=== PATIENT | female | born 1965 | race Caucasian/White ===

== ENCOUNTER 2017-05-01 20:37 | Emergency (ER) | payer OTHER ==
[2017-05-01 21:11] VITALS: BP 143/68; PULSE 75; RESP 20; TEMP 98.5
--- NOTE | 2017-05-01 21:36 | ED ---
Fall HPI - General Chief Complaint: Fall Stated Complaint: Fall, Left Ankle Injury Time Seen by Provider: 05/01/17 21:24 Source: patient Mode of arrival: wheelchair Limitations: no limitations - History of Present Illness Initial Comments: 51-year-old female presents emergency Department chief complaint of left ankle foot pain. Patient states that she was stepping out of her parents tell slipped on a rug and some ice. Patient states that her foot went backwards. She states that she is not able to bear weight secondary to pain. She states it swollen. Denies head injury no loss conscious. Patient states she has a contusion to her right forearm but minimal discomfort. Patient offers no other complaints other injuries. Symptoms are better at rest. - Related Data Home Medications Medication Instructions Recorded Confirmed No Known Home Medications [No 07/07/13 05/01/17 Known Home Medications] Allergies Allergy/AdvReac Type Severity Reaction Status Date / Time codeine Allergy Rash/Hives Verified 07/07/13 20:20 sulfamethoxazole Allergy Rash/Hives Verified 07/07/13 20:20 [From Bactrim] trimethoprim [From Bactrim] Allergy Rash/Hives Verified 07/07/13 20:20 Review of Systems ROS Statement: Those systems with pertinent positive or pertinent negative responses have been documented in the HPI. ROS Other: All systems not noted in ROS Statement are negative. Past Medical History Past Medical History: Pneumonia Additional Past Medical History / Comment(s): ibs, constipation, endometerosis History of Any Multi-Drug Resistant Organisms: None Reported Additional Past Surgical History / Comment(s): uterine ablation Past Psychological History: Depression Smoking Status: Never smoker Past Alcohol Use History: None Reported Past Drug Use History: None Reported General Exam Limitations: no limitations General appearance: alert, in no apparent distress Head exam: Present: atraumatic, normocephalic, normal inspection Neck exam: Present: normal inspection, full ROM. Absent: tenderness, meningismus, lymphadenopathy Respiratory exam: Present: normal lung sounds bilaterally. Absent: respiratory distress, wheezes, rales, rhonchi, stridor Cardiovascular Exam: Present: regular rate, normal rhythm, normal heart sounds. Absent: systolic murmur, diastolic murmur, rubs, gallop, clicks Extremities exam: Present: other (Left ankle there is mild swelling, tenderness the anterior surface and lateral malleolus, pedal pulses equal bilaterally there is tenderness over the second third fourth metatarsal) Skin exam: Present: warm, dry, intact, normal color. Absent: rash Course Vital Signs 05/01/17 21:08 Temperature 98.5 F Pulse Rate 75 Respiratory 20 Rate Blood Pressure 143/68 O2 Sat by Pulse 98 Oximetry Medical Decision Making - Medical Decision Making This a 51-year-old female presented for left foot and ankle injury. There is no acute fracture per radiology reading. Patient has a left foot and ankle sprain. Patiently Lazarus wrap and follow-up with her primary care physician or orthopedics if needed. Return parameters were discussed. Disposition Clinical Impression: Fall, Left ankle sprain, Sprain of left foot Disposition: HOME SELF-CARE Condition: Stable Instructions: Ankle Sprain (ED) Additional Instructions: Please return to the Emergency Department if symptoms worsen or any other concerns. Referrals: Luis Salazar MD [Primary Care Provider] - 1-2 days Time of Disposition: 21:46
--- NOTE | 2017-05-01 21:42 | XR ---
EXAMINATION TYPE: XR ankle complete LT DATE OF EXAM: 05/01/2017 COMPARISON: NONE HISTORY: Pain TECHNIQUE: 3 views FINDINGS: I see no fracture nor dislocation. Ankle mortise is anatomic. There is a plantar calcaneal spur. IMPRESSION: Calcaneal mild spurring. No fracture seen.
--- NOTE | 2017-05-01 21:43 | XR ---
EXAMINATION TYPE: XR foot complete LT DATE OF EXAM: 05/01/2017 COMPARISON: NONE HISTORY: Pain TECHNIQUE: 3 views FINDINGS: I see no fracture nor dislocation. Metatarsals appear intact. Joint spaces are normal. IMPRESSION: Negative left foot exam. Small plantar calcaneal spur is present.
== END 2017-05-01 21:58 | disposition home or self-care (01) ==
LOC: EC 20:37
DX: S93.402A Sprain of unspecified ligament of left ankle, initial encounter (principal); S93.602A Unspecified sprain of left foot, initial encounter; Z88.2 Allergy status to sulfonamides; Z88.5 Allergy status to narcotic agent; W01.0XXA Fall on same level from slipping, tripping and stumbling without subsequent striking against object, initial encounter; Y92.89 Other specified places as the place of occurrence of the external cause
CPT/HCPCS: 99283

== ENCOUNTER 2017-10-06 18:44 | Emergency (ER) | payer OTHER ==
[2017-10-06] MEDS ORDERED: FAMOTIDINE 20 MG/2 ML VIAL IV STA (19:05)
[2017-10-06] MEDS ORDERED: diphenhydrAMINE 50 MG/ML 1 ML VIAL IVP STA (19:05)
[2017-10-06] MEDS ORDERED: methylPREDNISolone SOD SUCCI 125 MG/2 ML VIAL IV STA (19:05)
--- NOTE | 2017-10-06 19:14 | ED ---
General Adult HPI - General Source: patient, RN notes reviewed Mode of arrival: ambulatory Limitations: no limitations <Taran Bryant - Last Filed: 10/06/17 19:31> <Low Felix - Last Filed: 10/06/17 21:04> - General Chief complaint: Allergic Reaction Stated complaint: allergic reaction, diff breathing Time Seen by Provider: 10/06/17 18:54 - History of Present Illness Initial comments: Patient 51-year-old female presenting to the emergency room today with a chief complaint of hives. Patient does admit that she's had some small spots over the last month. She states that she was having episodes diarrhea. She states that a week ago she saw her family physician and was started on ciprofloxacin and also a Medrol Dosepak. Patient states that she's been on this for the past week. She states that today when she was at work the areas of redness and swelling got worse. She does admit that she felt some chest tightness. She states this morning she felt some discomfort in the back of her shoulders. She states the areas on her skin are very itchy and inflamed. Has not taken anything for these. Denies any contacts. Denies any other complaints. Patient denies any recent fever, chills, shortness of breath, back pain, nausea or vomiting, headaches or visual changes, or any other complaints. (Taran Bryant) - Related Data Home Medications Medication Instructions Recorded Confirmed Ciprofloxacin HCl [Cipro] 500 mg PO Q12HR 10/06/17 10/06/17 Ibuprofen [Motrin Ib] 400 mg PO Q6H PRN 10/06/17 10/06/17 methylPREDNISolone Dose Pack See Taper PO DIRECTED 10/06/17 10/06/17 [Medrol Dose Pack] Previous Rx's Medication Instructions Recorded diphenhydrAMINE [Benadryl] 25 mg PO TID PRN #21 capsule 10/06/17 methylPREDNISolone Dose Pack 4 mg PO DIRECTED #21 package 10/06/17 [Medrol Dose Pack] Allergies Allergy/AdvReac Type Severity Reaction Status Date / Time codeine Allergy Rash/Hives Verified 10/06/17 19:23 sulfamethoxazole Allergy Rash/Hives Verified 10/06/17 19:23 [From Bactrim] trimethoprim [From Bactrim] Allergy Rash/Hives Verified 10/06/17 19:23 Review of Systems ROS Other: All systems not noted in ROS Statement are negative. <Taran Bryant - Last Filed: 10/06/17 19:31> ROS Other: All systems not noted in ROS Statement are negative. <Low Felix Ebonie - Last Filed: 10/06/17 21:04> ROS Statement: Those systems with pertinent positive or pertinent negative responses have been documented in the HPI. Past Medical History Past Medical History: Pneumonia Additional Past Medical History / Comment(s): ibs, constipation, endometeriosis , autoimmune marker + in blood work recently History of Any Multi-Drug Resistant Organisms: None Reported Additional Past Surgical History / Comment(s): uterine ablation, bilateral wrist ORIF Past Psychological History: Depression Smoking Status: Never smoker Past Alcohol Use History: Occasional Past Drug Use History: None Reported <Taran Bryant - Last Filed: 10/06/17 19:31> General Exam Limitations: no limitations <Taran Bryant - Last Filed: 10/06/17 19:31> <LuzhaseebLow Ebonie - Last Filed: 10/06/17 21:04> - General Exam Comments Initial Comments: General: The patient is awake and alert, in no distress, and does not appear acutely ill. Eye: Pupils are equal, round and reactive to light, extra-ocular movements are intact. No nystagmus. There is normal conjunctiva bilaterally. No signs of icterus. Ears, nose, mouth and throat: There are moist mucous membranes and no oral lesions. Neck: The neck is supple, there is no tenderness or JVD. Cardiovascular: There is a regular rate and rhythm. No murmur, rub or gallop is appreciated. Respiratory: Lungs are clear to auscultation, respirations are non-labored, breath sounds are equal. No wheezes, stridor, rales, or rhonchi. Gastrointestinal: Soft, non-distended, non-tender abdomen without masses or organomegaly noted. There is no rebound or guarding present. No CVA tenderness. Musculoskeletal: Normal ROM, no tenderness. Sensation intact. Neurological: A&O x 3. CN II-XII intact, There are no obvious motor or sensory deficits. Coordination appears grossly intact. Speech is normal. Skin: Red raised areas to the extremities bilaterally. Psychiatric: Cooperative, appropriate mood & affect, normal judgment. (Taran Bryant) Vital Signs 10/06/17 10/06/17 10/06/17 18:47 19:47 20:34 Temperature 97.6 F Pulse Rate 97 91 78 Respiratory 22 16 18 Rate Blood Pressure 118/80 146/93 144/92 O2 Sat by Pulse 96 99 99 Oximetry EKG Findings - EKG Comments: EKG Findings:: EKG performed at 1926: Shows normal sinus rhythm with an incomplete right bundle branch block. Ventricular rate 69 bpm. MT interval 184. QRS 96. QT/QTC 380/407. <Taran Bryant - Last Filed: 10/06/17 19:31> Medical Decision Making <Taran Bryant - Last Filed: 10/06/17 19:31> - Lab Data Result diagrams: 10/06/17 19:40 10/06/17 19:40 <Low Felix - Last Filed: 10/06/17 21:04> - Medical Decision Making 51-year-old female presenting for evaluation of possible ALLERGIC reaction and rash. Patient has been on Cipro, she does believe her symptoms are related to Cipro today is day 6 of treatment. She complained of some rash, itchiness, and some mild chest tightness. For this reason she did receive a cardiac workup. Symptoms have been present for approximately 12 hours. EKG is normal sinus rhythm with an incomplete right bundle branch block, no ST segment elevation or depression, laboratory studies are unremarkable including normal CBC, normal CMP and a negative troponin. Case is discussed with her primary care physician Dr. Salazar. She will be started on Medrol Dosepak as well as short course of Benadryl. She will follow-up with her primary care physician. (Low Felix) - Lab Data Lab Results 10/06/17 10/06/17 10/06/17 Range/Units 19:40 19:40 19:40 WBC 8.7 (3.8-10.6) k/uL RBC 4.51 (3.80-5.40) m/uL Hgb 13.9 (11.4-16.0) gm/dL Hct 40.6 (34.0-46.0) % MCV 90.1 (80.0-100.0) fL MCH 30.8 (25.0-35.0) pg MCHC 34.2 (31.0-37.0) g/dL RDW 12.3 (11.5-15.5) % Plt Count 332 (150-450) k/uL Neutrophils % 61 % Lymphocytes % 33 % Monocytes % 5 % Eosinophils % 0 % Basophils % 0 % Neutrophils # 5.3 (1.3-7.7) k/uL Lymphocytes # 2.8 (1.0-4.8) k/uL Monocytes # 0.4 (0-1.0) k/uL Eosinophils # 0.0 (0-0.7) k/uL Basophils # 0.0 (0-0.2) k/uL PT (9.0-12.0) sec INR (<1.2) APTT (22.0-30.0) sec Sodium 135 L (137-145) mmol/L Potassium 3.8 (3.5-5.1) mmol/L Chloride 102 (98-107) mmol/L Carbon Dioxide 27 (22-30) mmol/L Anion Gap 6 mmol/L BUN 15 (7-17) mg/dL Creatinine 0.70 (0.52-1.04) mg/dL Est GFR (CKD-EPI)AfAm >90 (>60 ml/min/1.73 sqM) Est GFR (CKD-EPI)NonAf >90 (>60 ml/min/1.73 sqM) Glucose 100 H (74-99) mg/dL Calcium 9.3 (8.4-10.2) mg/dL Total Bilirubin 0.4 (0.2-1.3) mg/dL AST 17 (14-36) U/L ALT 26 (9-52) U/L Alkaline Phosphatase 52 (38-126) U/L Total Creatine Kinase 29 L (30-135) U/L CK-MB (CK-2) 0.5 (0.0-2.4) ng/mL CK-MB (CK-2) Rel Index 1.7 Troponin I <0.012 (0.000-0.034) ng/mL Total Protein 6.5 (6.3-8.2) g/dL Albumin 4.0 (3.5-5.0) g/dL Urine Color Urine Appearance (Clear) Urine pH (5.0-8.0) Ur Specific [place] (1.001-1.035) Urine Protein (Negative) Urine Glucose (UA) (Negative) Urine Ketones (Negative) Urine Blood (Negative) Urine Nitrite (Negative) Urine Bilirubin (Negative) Urine Urobilinogen (<2.0) mg/dL Ur Leukocyte Esterase (Negative) Urine RBC (0-5) /hpf Urine WBC (0-5) /hpf Ur Squamous Epith Cells (0-4) /hpf Urine Bacteria (None) /hpf Hyaline Casts (0-2) /lpf Urine Mucus (None) /hpf 10/06/17 10/06/17 Range/Units 19:40 20:30 WBC (3.8-10.6) k/uL RBC (3.80-5.40) m/uL Hgb (11.4-16.0) gm/dL Hct (34.0-46.0) % MCV (80.0-100.0) fL MCH (25.0-35.0) pg MCHC (31.0-37.0) g/dL RDW (11.5-15.5) % Plt Count (150-450) k/uL Neutrophils % % Lymphocytes % % Monocytes % % Eosinophils % % Basophils % % Neutrophils # (1.3-7.7) k/uL Lymphocytes # (1.0-4.8) k/uL Monocytes # (0-1.0) k/uL Eosinophils # (0-0.7) k/uL Basophils # (0-0.2) k/uL PT 10.4 (9.0-12.0) sec INR 1.1 (<1.2) APTT 22.2 (22.0-30.0) sec Sodium (137-145) mmol/L Potassium (3.5-5.1) mmol/L Chloride (98-107) mmol/L Carbon Dioxide (22-30) mmol/L Anion Gap mmol/L BUN (7-17) mg/dL Creatinine (0.52-1.04) mg/dL Est GFR (CKD-EPI)AfAm (>60 ml/min/1.73 sqM) Est GFR (CKD-EPI)NonAf (>60 ml/min/1.73 sqM) Glucose (74-99) mg/dL Calcium (8.4-10.2) mg/dL Total Bilirubin (0.2-1.3) mg/dL AST (14-36) U/L ALT (9-52) U/L Alkaline Phosphatase (38-126) U/L Total Creatine Kinase (30-135) U/L CK-MB (CK-2) (0.0-2.4) ng/mL CK-MB (CK-2) Rel Index Troponin I (0.000-0.034) ng/mL Total Protein (6.3-8.2) g/dL Albumin (3.5-5.0) g/dL Urine Color Yellow Urine Appearance Cloudy H (Clear) Urine pH 6.0 (5.0-8.0) Ur Specific [place] 1.025 (1.001-1.035) Urine Protein 1+ H (Negative) Urine Glucose (UA) Negative (Negative) Urine Ketones Negative (Negative) Urine Blood Negative (Negative) Urine Nitrite Negative (Negative) Urine Bilirubin Negative (Negative) Urine Urobilinogen 3.0 (<2.0) mg/dL Ur Leukocyte Esterase Negative (Negative) Urine RBC 3 (0-5) /hpf Urine WBC 6 H (0-5) /hpf Ur Squamous Epith Cells 2 (0-4) /hpf Urine Bacteria Rare H (None) /hpf Hyaline Casts 25 H (0-2) /lpf Urine Mucus Many H (None) /hpf Disposition <Taran Bryant - Last Filed: 10/06/17 19:31> Is patient prescribed a controlled substance at d/c from ED?: No Time of Disposition: 21:03 <Low Felix - Last Filed: 10/06/17 21:04> Clinical Impression: Adverse reaction to drug Disposition: HOME SELF-CARE Condition: Good Instructions: General Allergic Reaction (ED) Prescriptions: diphenhydrAMINE [Benadryl] 25 mg PO TID PRN #21 capsule PRN Reason: Allergic Reaction methylPREDNISolone Dose Pack [Medrol Dose Pack] 4 mg PO DIRECTED #21 package Referrals: Luis Salazar MD [Primary Care Provider] - 1-2 days
[2017-10-06 20:00] LABS: Basophils % (A) 0 %; Eosinophils % (A) 0 %; HCT 40.6 % (34.0-46.0); HGB 13.9 gm/dL (11.4-16.0); Lymphocytes # (A) 2.8 k/uL (1.0-4.8); Lymphocytes % (A) 33 %; MCH 30.8 pg (25.0-35.0); MCHC 34.2 g/dL (31.0-37.0); MCV 90.1 fL (80.0-100.0); Mean Platelet Volume 7.1; Monocytes # (A) 0.4 k/uL (0-1.0); Monocytes % (A) 5 %; Neutrophils # (A) 5.3 k/uL (1.3-7.7); Neutrophils % (A) 61 %; Platelet Count 332 k/uL (150-450); RBC 4.51 m/uL (3.80-5.40); RDW 12.3 % (11.5-15.5); WBC 8.7 k/uL (3.8-10.6)
[2017-10-06 20:11] LABS: ALT 26 U/L (9-52); AST 17 U/L (14-36); Alkaline Phosphatase 52 U/L (38-126); Anion Gap 6 mmol/L; Blood Urea Nitrogen 15 mg/dL (7-17); Calcium 9.3 mg/dL (8.4-10.2); Carbon Dioxide 27 mmol/L (22-30); Chloride 102 mmol/L (98-107); Glucose 100 mg/dL (74-99); Potassium 3.8 mmol/L (3.5-5.1); Sodium 135 mmol/L (137-145); Total Bilirubin 0.4 mg/dL (0.2-1.3); Total Protein 6.5 g/dL (6.3-8.2)
--- NOTE | 2017-10-06 20:15 | XR ---
EXAMINATION TYPE: XR chest 2V DATE OF EXAM: 10/06/2017 COMPARISON: NONE HISTORY: Chest tightness TECHNIQUE: Frontal and lateral views of the chest are obtained. FINDINGS: Heart and mediastinum are normal. Lungs are clear. Diaphragm is normal. Bony thorax is int act. IMPRESSION: Normal chest. No change.
[2017-10-06 20:20] LABS: Creatine Kinase 29 U/L (30-135)
[2017-10-06 20:21] LABS: INR 1.1 (<1.2); Partial Thromboplastin Time 22.2 sec (22.0-30.0); Prothrombin Time 10.4 sec (9.0-12.0)
[2017-10-06 20:32] LABS: Creatine Kinase MB 0.5 ng/mL (0.0-2.4); Troponin I <0.012 ng/mL (0.000-0.034)
[2017-10-06 20:50] LABS: Appearance,Urine Cloudy (Clear); Bacteria,Urine Rare /hpf; Bilirubin,Urine Negative (Negative); Blood,Urine Negative (Negative); Color,Urine Yellow; Glucose,Urine (UA) Negative (Negative); Hyaline Casts,Urine 25 /lpf (0-2); Ketones,Urine Negative (Negative); Leukocyte Esterase,Urine Negative (Negative); Mucus,Urine Many /hpf; Nitrite,Urine Negative (Negative); Protein,Urine 1+ (Negative); RBC,Urine 3 /hpf (0-5); Specific Gravity,Urine 1.025 (1.001-1.035); Squamous Epithelial Cell,Urine 2 /hpf (0-4); WBC,Urine 6 /hpf (0-5)
[2017-10-06 21:33] VITALS: BP 121/73; PULSE 74; RESP 16; TEMP 98.3
== END 2017-10-06 21:38 | disposition home or self-care (01) ==
LOC: EC 18:44
DX: R07.89 Other chest pain (principal); T36.8X5A Adverse effect of other systemic antibiotics, initial encounter; R21 Rash and other nonspecific skin eruption; R19.7 Diarrhea, unspecified; R29.898 Other symptoms and signs involving the musculoskeletal system; Z79.52 Long term (current) use of systemic steroids; Z88.5 Allergy status to narcotic agent; Z88.2 Allergy status to sulfonamides
CPT/HCPCS: 36415; 93005; 80053; 82550; 82553; 84484; 85025; 85610; 85730; 81001; 71046; 99284; 96374; 96375 ×2; J1200; J2930

== ENCOUNTER 2017-10-11 09:32 | Observation (INO) | payer OTHER ==
[2017-10-11] MEDS ORDERED: NITROGLYCERIN SL TABS 0.4 MG TAB SUBLINGUAL STA ×3 (09:48)
[2017-10-11] MEDS ORDERED: ASPIRIN 81 MG PO STA (09:48)
--- NOTE | 2017-10-11 09:51 | ED ---
General Adult HPI - General Chief complaint: Chest Pain Stated complaint: Chest pain Time Seen by Provider: 10/11/17 09:40 Source: patient, EMS, RN notes reviewed Mode of arrival: EMS Limitations: no limitations - History of Present Illness Initial comments: Patient is a pleasant 51-year-old female presenting to the emergency Department with complaints of chest discomfort. Onset of symptoms was more than an hour ago. Patient was at her desk at work. Patient has sharp/pressure in the sternal region with radiation slightly towards the right. Patient does have some associated dyspnea and nausea. No diaphoresis. No history of similar symptoms previously. Symptoms have been waxing and waning. Discomfort is currently 6/10. - Related Data Home Medications Medication Instructions Recorded Confirmed methylPREDNISolone Dose Pack See Taper PO DIRECTED 10/11/17 10/11/17 [Medrol Dose Pack] Previous Rx's Medication Instructions Recorded diphenhydrAMINE [Benadryl] 25 mg PO TID PRN #21 capsule 10/06/17 Allergies Allergy/AdvReac Type Severity Reaction Status Date / Time ciprofloxacin [From Cipro] Allergy Rash/Hives Verified 10/11/17 10:14 codeine Allergy Rash/Hives Verified 10/11/17 10:14 hydralazine Allergy FLUSHING / Verified 10/11/17 10:14 Tachycardia sulfamethoxazole Allergy Rash/Hives Verified 10/11/17 10:14 [From Bactrim] trimethoprim [From Bactrim] Allergy Rash/Hives Verified 10/11/17 10:14 Review of Systems ROS Statement: Those systems with pertinent positive or pertinent negative responses have been documented in the HPI. ROS Other: All systems not noted in ROS Statement are negative. Constitutional: Denies: fever Eyes: Denies: eye pain ENT: Denies: ear pain Respiratory: Reports: dyspnea. Denies: cough Cardiovascular: Reports: chest pain Endocrine: Denies: fatigue Gastrointestinal: Reports: nausea. Denies: abdominal pain Genitourinary: Denies: dysuria Musculoskeletal: Denies: back pain Skin: Denies: rash Neurological: Denies: weakness Past Medical History Past Medical History: Pneumonia Additional Past Medical History / Comment(s): ibs, constipation, endometeriosis , autoimmune marker + in blood work recently History of Any Multi-Drug Resistant Organisms: None Reported Additional Past Surgical History / Comment(s): uterine ablation, bilateral wrist ORIF Past Psychological History: Depression Smoking Status: Never smoker Past Alcohol Use History: Occasional Past Drug Use History: None Reported General Exam Limitations: no limitations General appearance: alert, in no apparent distress Head exam: Present: atraumatic Eye exam: Present: normal appearance, PERRL ENT exam: Present: normal oropharynx Neck exam: Present: normal inspection Respiratory exam: Present: normal lung sounds bilaterally. Absent: chest wall tenderness Cardiovascular Exam: Present: regular rate, normal rhythm, normal heart sounds Expanded Peripheral pulses: 2+: Radial (R), Radial (L), Dorsalis Pedis (R), Dorsalis Pedis (L) GI/Abdominal exam: Present: soft. Absent: tenderness Extremities exam: Present: normal inspection. 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 ME 216. For screening AV block. QRS 96. QT 428. QTC 423. Normal axis. Normal QRS. No acute ST change. Medical Decision Making - Medical Decision Making Patient reevaluated and resting comfortably in bed. Patient has had partial improvement of symptoms. Patient updated on results and plan. Case was discussed in detail with Luis García, who will admit his patient. - Lab Data Result diagrams: 10/11/17 09:34 10/11/17 09:34 Lab Results 10/11/17 10/11/17 10/11/17 Range/Units 09:34 09:34 09:34 WBC 9.4 (3.8-10.6) k/uL RBC 4.18 (3.80-5.40) m/uL Hgb 13.0 (11.4-16.0) gm/dL Hct 38.2 (34.0-46.0) % MCV 91.3 (80.0-100.0) fL MCH 31.0 (25.0-35.0) pg MCHC 34.0 (31.0-37.0) g/dL RDW 12.1 (11.5-15.5) % Plt Count 355 (150-450) k/uL Neutrophils % 44 % Lymphocytes % 47 % Monocytes % 6 % Eosinophils % 1 % Basophils % 0 % Neutrophils # 4.1 (1.3-7.7) k/uL Lymphocytes # 4.4 (1.0-4.8) k/uL Monocytes # 0.6 (0-1.0) k/uL Eosinophils # 0.1 (0-0.7) k/uL Basophils # 0.0 (0-0.2) k/uL PT (9.0-12.0) sec INR (<1.2) APTT (22.0-30.0) sec D-Dimer (<0.60) mg/L FEU Sodium 138 (137-145) mmol/L Potassium 4.1 (3.5-5.1) mmol/L Chloride 102 (98-107) mmol/L Carbon Dioxide 31 H (22-30) mmol/L Anion Gap 5 mmol/L BUN 18 H (7-17) mg/dL Creatinine 0.80 (0.52-1.04) mg/dL Est GFR (CKD-EPI)AfAm >90 (>60 ml/min/1.73 sqM) Est GFR (CKD-EPI)NonAf 85 (>60 ml/min/1.73 sqM) Glucose 101 H (74-99) mg/dL Calcium 9.4 (8.4-10.2) mg/dL Magnesium 2.0 (1.6-2.3) mg/dL Total Bilirubin 0.4 (0.2-1.3) mg/dL AST 15 (14-36) U/L ALT 27 (9-52) U/L Alkaline Phosphatase 51 (38-126) U/L Total Creatine Kinase <20 L (30-135) U/L CK-MB (CK-2) <0.2 (0.0-2.4) ng/mL CK-MB (CK-2) Rel Index Troponin I <0.012 (0.000-0.034) ng/mL Total Protein 6.4 (6.3-8.2) g/dL Albumin 3.9 (3.5-5.0) g/dL 10/11/17 Range/Units 09:34 WBC (3.8-10.6) k/uL RBC (3.80-5.40) m/uL Hgb (11.4-16.0) gm/dL Hct (34.0-46.0) % MCV (80.0-100.0) fL MCH (25.0-35.0) pg MCHC (31.0-37.0) g/dL RDW (11.5-15.5) % Plt Count (150-450) k/uL Neutrophils % % Lymphocytes % % Monocytes % % Eosinophils % % Basophils % % Neutrophils # (1.3-7.7) k/uL Lymphocytes # (1.0-4.8) k/uL Monocytes # (0-1.0) k/uL Eosinophils # (0-0.7) k/uL Basophils # (0-0.2) k/uL PT 10.1 (9.0-12.0) sec INR 1.0 (<1.2) APTT 19.3 L (22.0-30.0) sec D-Dimer 0.26 (<0.60) mg/L FEU Sodium (137-145) mmol/L Potassium (3.5-5.1) mmol/L Chloride (98-107) mmol/L Carbon Dioxide (22-30) mmol/L Anion Gap mmol/L BUN (7-17) mg/dL Creatinine (0.52-1.04) mg/dL Est GFR (CKD-EPI)AfAm (>60 ml/min/1.73 sqM) Est GFR (CKD-EPI)NonAf (>60 ml/min/1.73 sqM) Glucose (74-99) mg/dL Calcium (8.4-10.2) mg/dL Magnesium (1.6-2.3) mg/dL Total Bilirubin (0.2-1.3) mg/dL AST (14-36) U/L ALT (9-52) U/L Alkaline Phosphatase (38-126) U/L Total Creatine Kinase (30-135) U/L CK-MB (CK-2) (0.0-2.4) ng/mL CK-MB (CK-2) Rel Index Troponin I (0.000-0.034) ng/mL Total Protein (6.3-8.2) g/dL Albumin (3.5-5.0) g/dL - Radiology Data Radiology results: image reviewed (Chest x-ray shows no acute process) Disposition Clinical Impression: Chest pain Disposition: ADMITTED IP TO THIS HOSP Is patient prescribed a controlled substance at d/c from ED?: No Referrals: Luis Salazar MD [Primary Care Provider] - 1-2 days Decision Time: 11:49
[2017-10-11 10:09] LABS: Basophils % (A) 0 %; Eosinophils # (A) 0.1 k/uL (0-0.7); Eosinophils % (A) 1 %; HCT 38.2 % (34.0-46.0); Lymphocytes # (A) 4.4 k/uL (1.0-4.8); Lymphocytes % (A) 47 %; MCV 91.3 fL (80.0-100.0); Mean Platelet Volume 6.8; Monocytes # (A) 0.6 k/uL (0-1.0); Monocytes % (A) 6 %; Neutrophils # (A) 4.1 k/uL (1.3-7.7); Neutrophils % (A) 44 %; Platelet Count 355 k/uL (150-450); RBC 4.18 m/uL (3.80-5.40); RDW 12.1 % (11.5-15.5); WBC 9.4 k/uL (3.8-10.6)
--- NOTE | 2017-10-11 10:21 | XR ---
EXAMINATION TYPE: XR chest 2V DATE OF EXAM: 10/11/2017 COMPARISON: 10/06/2017 HISTORY: Shortness of breath TECHNIQUE: Frontal and lateral views of the chest are obtained. FINDINGS: Scattered senescent parenchymal changes noted. Hyperinflation compatible with COPD. No evidence for infiltrate. No evidence for atelectasis. Heart size is stable. Mediastinal structures are stable and grossly unremarkable. No evidence for hilar prominence. Degenerative changes dorsal spine. IMPRESSION: 1. No evidence for acute pulmonary disease.
[2017-10-11 10:24] LABS: ALT 27 U/L (9-52); AST 15 U/L (14-36); Albumin 3.9 g/dL (3.5-5.0); Alkaline Phosphatase 51 U/L (38-126); Anion Gap 5 mmol/L; Blood Urea Nitrogen 18 mg/dL (7-17); Calcium 9.4 mg/dL (8.4-10.2); Carbon Dioxide 31 mmol/L (22-30); Chloride 102 mmol/L (98-107); Glucose 101 mg/dL (74-99); Potassium 4.1 mmol/L (3.5-5.1); Sodium 138 mmol/L (137-145); Total Bilirubin 0.4 mg/dL (0.2-1.3); Total Protein 6.4 g/dL (6.3-8.2)
[2017-10-11] MEDS ORDERED: MORPHINE SULFATE 4 MG/ML SYRINGE IVP STA (10:25)
[2017-10-11 10:26] LABS: D-Dimer 0.26 mg/L FEU (<0.60); Prothrombin Time 10.1 sec (9.0-12.0)
[2017-10-11 10:33] LABS: Creatine Kinase <20 U/L (30-135)
[2017-10-11 10:46] LABS: Creatine Kinase MB <0.2 ng/mL (0.0-2.4); Troponin I <0.012 ng/mL (0.000-0.034)
[2017-10-11 10:49] LABS: Partial Thromboplastin Time 19.3 sec (22.0-30.0)
[2017-10-11] MEDS ORDERED: FAMOTIDINE 20 MG/2 ML VIAL IV STA (11:48)
[2017-10-11] MEDS ORDERED: NITROGLYCERIN SL TABS 0.4 MG TAB SUBLINGUAL PRN (11:50)
[2017-10-11 16:37] LABS: Creatine Kinase <20 U/L (30-135)
[2017-10-11 16:51] LABS: Creatine Kinase MB 0.2 ng/mL (0.0-2.4); Troponin I <0.012 ng/mL (0.000-0.034)
[2017-10-11] MEDS: NITROGLYCERIN OINT 1 INCH/GM PACKET TOPICAL SCH ×2 (18:01→20:38)
[2017-10-11 19:33] VITALS: RESP 16
[2017-10-11 22:02] LABS: Creatine Kinase <20 U/L (30-135)
[2017-10-11 22:16] LABS: Creatine Kinase MB 0.2 ng/mL (0.0-2.4); Troponin I <0.012 ng/mL (0.000-0.034)
[2017-10-12 01:42] LABS: Cholesterol 210 mg/dL (<200); HDL Cholesterol 101 mg/dL (40-60); LDL Cholesterol,Calculated 83 mg/dL (0-99); Triglycerides 128 mg/dL (<150)
[2017-10-12] MEDS: NITROGLYCERIN OINT 1 INCH/GM PACKET TOPICAL SCH ×2 (05:40→11:30)
--- NOTE | 2017-10-12 07:49 | P.CRDCN ---
History of Present Illness Consult date: 10/12/17 Chief complaint: Chest pain History of present illness: This is a pleasant 51-year-old female patient with no significant past medical history of coronary artery disease or diabetes or hypertension or dyslipidemia presented to the emergency room complaining of chest discomfort. The patient history started about a week ago when she started experiencing of diarrhea and she was prescribed ciprofloxacin. Subsequently the patient developed ALLERGIC reaction to ciprofloxacin where she developed a rash and she came in to the emergency room and was discharged after that. She was discharged on steroids. She was in her usual state of health until yesterday when she was at work sitting behind her desk and suddenly started experiencing discomfort in the mid of the chest as a dull kind of discomfort and subsequently sharp kind of discomfort in the mid of the chest as well as on the right side of the chest. It did not radiate to the arm or neck or shoulders. It was associated with shortness of breath but no sweating, dizziness or lightheadedness or syncope. The discomfort lasted till she arrived to the emergency room by ambulance. On the way to the ER she was given nitroglycerin without improvement in her symptoms. The symptoms improved with morphine only. The patient continues to have mild discomfort at this point. The EKG showed sinus rhythm without significant ST or T-wave abnormalities. 3 sets of cardiac enzymes were checked and came in to be unremarkable. The d-dimer came in to be also unremarkable. The chest x-ray did not show any acute abnormalities. In term of past medical history she does not have any CAD, diabetes, hypertension, dyslipidemia. She underwent multiple noncardiac surgeries in the past. She does not smoke or drink alcohol. She does not have any family history of premature coronary artery disease. Past Medical History Past Medical History: Asthma, Pneumonia Additional Past Medical History / Comment(s): Pt states mid August 2017 had watery diarrhea and then red bumps on her skin treated with steroids/ABX and then developed welts/ELVIA and was tx with IV benedryl in [facility]/pt was able to obtain stool sample and gave to PCP, recently discovered highly positive markers in her blood for possible autoimmune disease, IBS, normally constipated , hemorrhoids, 2012 pneumonia/plerisy/possible COPD, endometriosis with sx, bilateral varicosities, occasional cervical pain/bilateral shoulder pain, "borderline" anemia, past frequent UTIs. History of Any Multi-Drug Resistant Organisms: None Reported Past Surgical History: Orthopedic Surgery, Uterine Ablation Additional Past Surgical History / Comment(s): D&Cs, Novasure uterine ablation, bilateral wrist ORIF, colonoscopy x 2, renal stent d/t frequent UTIs per pt. Past Anesthesia/Blood Transfusion Reactions: No Reported Reaction Smoking Status: Never smoker - Past Family History Father Family Medical History: Eye Disorder Additional Family Medical History / Comment(s): Glaucoma Mother Additional Family Medical History / Comment(s): Pt believes mother has alzhiemer 's dx. Medications and Allergies Home Medications Medication Instructions Recorded Confirmed Type diphenhydrAMINE [Benadryl] 25 mg PO TID PRN #21 capsule 10/06/17 10/11/17 Rx methylPREDNISolone Dose Pack See Taper PO DIRECTED 10/11/17 10/11/17 History [Medrol Dose Pack] Allergies Allergy/AdvReac Type Severity Reaction Status Date / Time ciprofloxacin [From Cipro] Allergy Rash/Hives Verified 10/11/17 10:14 codeine Allergy Rash/Hives Verified 10/11/17 10:14 hydralazine Allergy FLUSHING / Verified 10/11/17 10:14 Tachycardia sulfamethoxazole Allergy Rash/Hives Verified 10/11/17 10:14 [From Bactrim] trimethoprim [From Bactrim] Allergy Rash/Hives Verified 10/11/17 10:14 Physical Exam Vitals: Vital Signs Temp Pulse Pulse Pulse Resp BP BP 10/12/17 07:31 97.7 F 70 16 93/64 10/12/17 03:55 97.6 F 59 L 16 103/69 10/12/17 03:07 16 10/12/17 00:00 16 10/11/17 23:19 98.4 F 59 L 16 103/69 10/11/17 20:00 16 10/11/17 19:32 98.2 F 61 16 137/78 10/11/17 16:10 97.5 F L 61 18 113/76 10/11/17 13:12 10/11/17 12:20 97.7 F 51 L 18 142/79 10/11/17 11:46 62 18 111/64 10/11/17 10:49 55 L 18 95/61 10/11/17 10:18 57 L 18 119/72 10/11/17 09:44 58 L 10/11/17 09:34 97.2 F L 61 20 112/63 Pulse Ox 10/12/17 07:31 98 10/12/17 03:55 97 10/12/17 03:07 10/12/17 00:00 10/11/17 23:19 97 10/11/17 20:00 10/11/17 19:32 97 10/11/17 16:10 97 10/11/17 13:12 97 10/11/17 12:20 100 10/11/17 11:46 100 10/11/17 10:49 100 10/11/17 10:18 100 10/11/17 09:44 10/11/17 09:34 97 Intake and Output 10/11/17 10/12/17 10/12/17 22:59 06:59 14:59 Intake Total 240 Balance 240 Intake: Oral 240 Other: Voiding Method Toilet Toilet # Voids 1 2 - Constitutional General appearance: no acute distress - Respiratory Respiratory: bilateral: CTA - Cardiovascular Rhythm: regular Heart sounds: normal: S1, S2 Results 10/11/17 09:34 10/11/17 09:34 Cardiac Enzymes 10/11/17 10/11/17 10/11/17 Range/Units 09:34 09:34 15:30 AST 15 (14-36) U/L CK-MB (CK-2) <0.2 0.2 (0.0-2.4) ng/mL Troponin I <0.012 <0.012 (0.000-0.034) ng/mL 10/11/17 Range/Units 21:32 AST (14-36) U/L CK-MB (CK-2) 0.2 (0.0-2.4) ng/mL Troponin I <0.012 (0.000-0.034) ng/mL Coagulation 10/11/17 Range/Units 09:34 PT 10.1 (9.0-12.0) sec APTT 19.3 L (22.0-30.0) sec Lipids 10/11/17 Range/Units 09:34 Triglycerides 128 (<150) mg/dL Cholesterol 210 H (<200) mg/dL HDL Cholesterol 101 H (40-60) mg/dL CBC 10/11/17 Range/Units 09:34 WBC 9.4 (3.8-10.6) k/uL RBC 4.18 (3.80-5.40) m/uL Hgb 13.0 (11.4-16.0) gm/dL Hct 38.2 (34.0-46.0) % Plt Count 355 (150-450) k/uL Comprehensive Metabolic Panel 10/11/17 Range/Units 09:34 Sodium 138 (137-145) mmol/L Potassium 4.1 (3.5-5.1) mmol/L Chloride 102 (98-107) mmol/L Carbon Dioxide 31 H (22-30) mmol/L BUN 18 H (7-17) mg/dL Creatinine 0.80 (0.52-1.04) mg/dL Glucose 101 H (74-99) mg/dL Calcium 9.4 (8.4-10.2) mg/dL AST 15 (14-36) U/L ALT 27 (9-52) U/L Alkaline Phosphatase 51 (38-126) U/L Total Protein 6.4 (6.3-8.2) g/dL Albumin 3.9 (3.5-5.0) g/dL Current Medications Generic Name Dose Route Start Last Admin Trade Name Freq PRN Reason Stop Dose Admin Aspirin 325 mg 10/12/17 09:00 Aspirin PO DAILY [facility] Nitroglycerin 1 inch 10/11/17 12:00 10/12/17 05:40 Nitro-Bid Oint TOPICAL Not Given Q6HR [facility] Nitroglycerin 0.4 mg 10/11/17 11:50 Nitrostat SUBLINGUAL Q5M PRN Chest Pain Sodium Chloride 10 ml 10/11/17 21:00 10/11/17 20:39 Saline Flush IV 10 ml BID [facility] Administration Intake and Output 10/11/17 10/12/17 10/12/17 22:59 06:59 14:59 Intake Total 240 Balance 240 Intake: Oral 240 Other: Voiding Method Toilet Toilet # Voids 1 2 10/11/17 09:34 10/11/17 09:34 Assessment and Plan Assessment: Assessment #1 atypical chest discomfort Plan #1 the patient was ruled out for acute coronary event. #2 I am going to obtain an echocardiogram was Doppler #3 also obtaining an exercise treadmill stress test and follow-up with the patient. Thank you for allowing us participate in her care and we will continue following up with the patient
[2017-10-12] MEDS ORDERED: ASPIRIN 325 MG TAB PO SCH (09:00)
--- NOTE | 2017-10-12 10:29 | ECHOF ---
Referral Reason:cp MEASUREMENTS -------- HEIGHT: 162.6 cm WEIGHT: 73.9 kg BP: RVIDd: 2.5 cm (< 3.3) IVSd: 1.0 cm (0.6 - 1.1) LVIDd: 3.4 cm (3.9 - 5.3) LVPWd: 0.9 cm (0.6 - 1.1) IVSs: 1.1 cm LVIDs: 3.3 cm LVPWs: 0.9 cm LA Diam: 2.0 cm (2.7 - 3.8) Ao Diam: 2.9 cm (2.0 - 3.7) AV Cusp: 1.8 cm (1.5 - 2.6) LA Diam: 2.1 cm (2.7 - 3.8) MV EXCURSION: 22.907 mm (> 18.000) MV EF SLOPE: 93 mm/s (70 - 150) EPSS: 0.3 cm MV E Jim: 0.61 m/s MV DecT: 149 ms MV A Jim: 0.40 m/s MV E/A Ratio: 1.55 RAP: 5.00 mmHg RVSP: 21.10 mmHg FINDINGS -------- Sinus rhythm. This was a technically adequate study. LV size, wall thickness and systolic function are normal, with an EF greater than 55%. The left timothy tricular size is normal. The right ventricle is normal in size. The left atrial size is normal. The right atrial size is normal. The aortic valve is trileaflet, and appears structurally normal. No aortic stenosis or regurgitation. Mild mitral regurgitation is present. Mild tricuspid regurgitation present. There is no evidence of pulmonary hypertension. The right v entricular systolic pressure, as measured by Doppler, is 21.10mmHg. There is no pulmonic regurgitation present. The aortic root size is normal. There is no pericardial effusion. CONCLUSIONS -------- 1. LV size, wall thickness and systolic function are normal, with an EF greater than 55%. 2. The left ventricular size is normal. 3. The right ventricle is normal in size. 4. The left atrial size is normal. 5. The right atrial size is normal. 6. The aortic valve is trileaflet, and appears structurally normal. No aortic stenosis or regurgitati on. 7. Mild mitral regurgitation is present. 8. Mild tricuspid regurgitation present. 9. There is no evidence of pulmonary hypertension. 10. The right ventricular systolic pressure, as measured by Doppler, is 21.10mmHg. 11. There is no pulmonic regurgitation present. 12. The aortic root size is normal. 13. There is no pericardial effusion. D[employer]ING [employer] STEWARD: Rosaline Novoa RDCS
--- NOTE | 2017-10-12 13:22 | EST ---
EXERCISE STRESS DATE OF SERVICE: 10/12/2017 AGE: 51 SEX: Female HT: 64" WT: 163 PROTOCOL: Gilmar STAGE: II DURATION OF EXERCISE: 6 minutes 1 second HEART RATE REST: 96 BLOOD PRESSURE REST: 145/108 MAXIMUM HEART RATE ACHIEVED: 154 MAXIMUM BLOOD PRESSURE: 199/97 85% MPHR: 142 100% MPHR: 167 METS: 7.1 INDICATIONS: Chest pain. CLINICAL INFORMATION: STRESS DATA: Pressure is 145/108, heart rate 96. EKG shows sinus rhythm. The patient exercised on the treadmill according to Gilmar protocol for a total of 6 minutes and 1 seconds and achieved 7.1 METs. Max heart rate was 154, which is about 92% of maximum predicted heart rate. Maximum blood pressure was 199/97 mmHg. Clinically the patient developed chest discomfort in response to exercise. The EKG at the peak of the heart rate showed no obvious abnormalities, but there was significant artifact. CONCLUSION: 1. Excellent exercise tolerance. 2. The patient developed chest discomfort at the peak of the exercise. 3. The EKG at peak exercise did show extensive artifact. 4. On recovery, there was no significant ST or T-wave abnormalities concerning for ischemia. 5. Overall probably normal stress test for the patient. MMODL / IJN: [id number] /
--- NOTE | 2017-10-12 14:23 | HP ---
HISTORY AND PHYSICAL CHIEF COMPLAINT: A 51-year-old white female with past medical history of coronary disease, negative diabetes, negative hypertension, negative, developed atypical chest pain associated with some diarrhea and ciprofloxacin. POSSIBLE ALLERGIC REACTION RECENTLY TO CIPROFLOXACIN. She came into the hospital, was given prednisone for it. She was sent home again. She had discomfort in her chest, still discomfort, not radiating down arm or back. Had some shortness of breath. No lightheaded or dizziness. Nitro was given without any improvement. Morphine did help. Cardiology evaluations being done with stress test and echo at this time. PAST MEDICAL HISTORY: Past medical history is negative for any smoking. No alcohol or any cardiac disease, hypertension or dyslipidemia. PAST MEDICAL HISTORY: Past history of asthma, pneumonia. SURGICAL HISTORY: NovaSure uterine ablation, D and C's, bilateral wrist ORIF, colonoscopy x2 and renal stents. FAMILY HISTORY: Father: eye disorder, glaucoma. Mother: Alzheimer's. MEDICATIONS: Home medications Benadryl, steroid pack. ALLERGIES: CIPRO, HYDRALAZINE, BACTRIM. PHYSICAL EXAM: Respiratory 16-18, blood pressure is 95-119 over 60s to 70s, temp 97 to 98, pulse is 50s to 60s. CARDIOVASCULAR: S1, S2. LUNGS: Clear. GI soft. Hematology negative Homans. Psych: Fair mood and affect. NEUROLOGIC: Alert and oriented x3. Nonreproducible chest pain. LABS: Were reviewed. Troponin is negative. Stress echo pending. Possible discharge home if cleared by Cardiology for the atypical chest pain, possible costal chondritis, dyslipidemia. Please see further orders. MMODL / IJN: [id number] /
[2017-10-12] MEDS ORDERED: RX INFO: IV CONTRAST WAS GIVEN 1 EACH MISC MISCELLANE PRN (14:31)
--- NOTE | 2017-10-12 16:31 | CT ---
EXAMINATION TYPE: CT chest w con DATE OF EXAM: 10/12/2017 COMPARISON: None HISTORY: Short of breath CT DLP: 616 mGycm, Automated exposure control for dose reduction was used. CONTRAST: Performed injected with 100 mL of Isovue 370. TECHNIQUE: Axial images were obtained at 5 mm thick sections. Reconstructed images are reviewed on [employer] computer in the coronal plane. FINDINGS: Portion of the thyroid visualized is normal. No suspicious lung nodules or focal infiltrates are present. No enlarged mediastinal or hilar adenopathy is evident. The ascending aorta diameter at the level o f the main pulmonary artery is 2.9 cm. The main pulmonary artery diameter at the bifurcation is 2.[address] sections are obtained through the upper abdomen. Abdomen is essentially unremarkable. IMPRESSIONS: 1. Normal Chest CT.
[2017-10-12] MEDS: diphenhydrAMINE 50 MG/ML 1 ML VIAL IVP PRN (17:26)
[2017-10-13] MEDS ORDERED: AMINOPHYLLINE 500 MG/20 ML VIAL IV PRN (06:00)
[2017-10-13] MEDS ORDERED: REGADENOSON 0.4 MG/5 ML SYRINGE IV ONE (06:00)
[2017-10-13] MEDS: diphenhydrAMINE 50 MG/ML 1 ML VIAL IVP PRN (07:43)
[2017-10-13] MEDS ORDERED: ASPIRIN 81 MG PO SCH (09:00)
--- NOTE | 2017-10-13 09:39 | P.PN ---
Subjective Mrs. Bello has past medical history significant for asthma. She underwent an exercise stress test yesterday that was inconclusive secondary to significant artifact. Echocardiogram performed reveals ventricular systolic function with ejection fraction 55%. She continued to feel intermittent symptoms of chest discomfort yesterday and again this morning. She again is having an allergic type reaction with urticaria and shortness of breath. Blood pressure 105/72 heart rate 78 afebrile and maintaining oxygen saturation on room air. She denies palpitations, nausea, vomiting, dizziness or diaphoresis. Telemetry tracings have been unremarkable. Objective - Vital Signs Vital signs: Vital Signs Temp 97.9 F 10/13/17 07:43 Pulse 78 10/13/17 07:43 Resp 16 10/13/17 07:43 BP 105/72 10/13/17 07:43 Pulse Ox 99 10/13/17 07:43 Intake & Output 10/12/17 10/13/17 10/13/17 18:59 06:59 18:59 Intake Total 684 Balance 684 Weight 73.936 kg Intake: Oral 684 Other: Voiding Method Toilet Toilet Toilet - Exam GENERAL: Well-appearing, well-nourished and in no acute distress. NECK: Supple without JVD or thyromegaly. LUNGS: Breath sounds clear to auscultation bilaterally. Respiration equal and unlabored. No wheezes, rales or rhonchi. HEART: Regular rate and rhythm without murmurs, rubs or gallops. S1 and S2 heard. EXTREMITIES: Normal range of motion, no edema. No clubbing or cyanosis. Peripheral pulses intact. - Labs CBC & Chem 7: 10/11/17 09:34 10/11/17 09:34 Assessment and Plan Assessment: ASSESSMENT Chest pain, atypical. An acute coronary event has been ruled out with no EKG evidence of ischemia and negative cardiac enzymes. History of asthma Urticaria Diarrhea PLAN Proceed with Lexiscan stress test to assess for reversible cardiac ischemia. If stress test is normal she is stable from a cardiac perspective. Follow-up with Dr. Patel in 2-3 weeks. Nurse Practitioner note has been reviewed, I agree with a documented findings and plan of care. Patient was seen and examined.
--- NOTE | 2017-10-13 10:31 | NM ---
EXAMINATION TYPE: NM stress lexiscan cardiolite DATE OF EXAM: 10/13/2017 COMPARISON: NONE HISTORY: Chest pain, history of asthma, and shortness of breath. TECHNIQUE: After the intravenous administration of 10.1 mCi Tc 99m Sestamibi - Cardiolite resting SP ECT images acquired 30 minutes post injection. The patient received 0.4mg Lexiscan, 26.4 mCi Tc 99m Sestamibi - Stress images obtained [address] injection FINDINGS: Review of stress and rest SPECT images demonstrates no distinct perfusion abnormality. Physiologic a pical thinning is identified. Gated analysis shows normal wall motion with an estimated left ventricu lar ejection fraction of 71 %. TID is within normal limits calculated at 1.03 IMPRESSION: No scintigraphic evidence for reversible ischemia.
--- NOTE | 2017-10-13 12:27 | EST ---
EXERCISE STRESS DATE OF SERVICE: 10/13/2017 AGE: 51 SEX: F HT: 64" WT: 163 PROTOCOL: Lexiscan Cardiolite Stress Test HEART RATE REST: 77 BLOOD PRESSURE REST: 122/75 MAXIMUM HEART RATE ACHIEVED: 118 MAXIMUM BLOOD PRESSURE: 197/116 85% MPHR: 142 100% MPHR: 167 INDICATIONS: Chest pain. CLINICAL INFORMATION: STRESS DATA: Pretesting physical examination showed heart rate of 77, pressure is 122/75 mmHg. Baseline EKG showed sinus mechanism. The patient was given 0.4 mg of Lexiscan over 15 seconds per protocol. The max heart rate was 118 beats per minute and maximum pressure was 197/116 mmHg. Clinically, she did not have any symptoms of chest pain or discomfort. The EKG did not show any significant ST or T-wave abnormalities. CONCLUSION: 1. Nondiagnostic electrocardiogram stress testing. 2. Please follow up on the Cardiolite portion on a separate report. MMODL / IJN: [id number] /
[2017-10-13 15:39] VITALS: BP 103/72; PULSE 85; TEMP 97.9
== END 2017-10-13 16:28 | disposition home or self-care (01) ==
LOC: EC 09:32 → 3OBS 11:50
PROVIDERS: ADMIT Family Medicine; ATTEND Family Medicine
DX: R07.89 Other chest pain (principal); R11.0 Nausea; R06.00 Dyspnea, unspecified; Z88.1 Allergy status to other antibiotic agents; Z88.5 Allergy status to narcotic agent; Z88.2 Allergy status to sulfonamides; Z88.8 Allergy status to other drugs, medicaments and biological substances; K58.0 Irritable bowel syndrome with diarrhea; K59.00 Constipation, unspecified; L50.0 Allergic urticaria; T36.8X5A Adverse effect of other systemic antibiotics, initial encounter; F32.9 Major depressive disorder, single episode, unspecified; Z87.01 Personal history of pneumonia (recurrent); N80.9 Endometriosis, unspecified; R06.09 Other forms of dyspnea; J45.909 Unspecified asthma, uncomplicated; Z87.440 Personal history of urinary (tract) infections; I83.93 Asymptomatic varicose veins of bilateral lower extremities; M54.2 Cervicalgia; M25.512 Pain in left shoulder; M25.511 Pain in right shoulder; Z83.511 Family history of glaucoma; I25.10 Atherosclerotic heart disease of native coronary artery without angina pectoris; Z82.0 Family history of epilepsy and other diseases of the nervous system
CPT/HCPCS: 99285; 96374 ×2; 96375 ×3; 96376; 36415; 93017; 93306; 85379; 80061; 80053; 82550; 82553; 83735; 84484; 85025; 85610; 85730; 71046; 71260; 78452; G0378 ×3; A9500; J2270; J1200 ×2; J2785; Q9967; 93005

== ENCOUNTER 2017-10-17 04:25 | Emergency (ER) | payer OTHER ==
[2017-10-17 04:31] VITALS: TEMP 98.3
[2017-10-17] MEDS ORDERED: diphenhydrAMINE 50 MG/ML 1 ML VIAL IVP STA (04:56)
[2017-10-17] MEDS ORDERED: predniSONE 20 MG TAB PO STA (04:56)
[2017-10-17] MEDS ORDERED: FAMOTIDINE 20 MG/2 ML VIAL IV STA (04:56)
--- NOTE | 2017-10-17 04:56 | ED ---
Chest Pain HPI - General Chief Complaint: Chest Pain Stated Complaint: chest pain Time Seen by Provider: 10/17/17 04:34 Source: patient, family Mode of arrival: ambulatory Limitations: no limitations - History of Present Illness Initial Comments: This patient is a 51-year-old woman who woke proximal an hour before coming in with substernal chest pain as described below. She states she had a similar episode on Tuesday and was admitted for 3 days here, having maikol stress test that was felt to be normal. She states that the symptoms recurred this morning while she was in bed and woke her. She has not had any anginal symptoms, but did note a recurrence of ALLERGIC reaction. She indicates large wheal to the right upper arm, and states that she has been having issues with ALLERGIC reaction for nearly 2 weeks now. The symptoms had improved but she was taking Benadryl and she also had been on a Medrol Dosepak. Complaint: chest pain Onset/Timin -: hour(s) Onset: awoke with symptoms Pain Location: substernal Pain Radiation: none Severity: moderate Quality: aching Consistency: constant Improves With: nothing Worsens With: nothing Other Symptoms: rash Treatments Prior to Arrival: none - Related Data Home Medications Medication Instructions Recorded Confirmed methylPREDNISolone Dose Pack See Taper PO DIRECTED 10/11/17 10/17/17 [Medrol Dose Pack] Previous Rx's Medication Instructions Recorded diphenhydrAMINE [Benadryl] 25 mg PO TID PRN #21 capsule 10/06/17 predniSONE 60 mg PO DAILY #30 tab 10/17/17 Allergies Allergy/AdvReac Type Severity Reaction Status Date / Time ciprofloxacin [From Cipro] Allergy Rash/Hives Verified 10/17/17 04:30 codeine Allergy Rash/Hives Verified 10/17/17 04:30 hydralazine Allergy FLUSHING / Verified 10/17/17 04:30 Tachycardia sulfamethoxazole Allergy Rash/Hives Verified 10/17/17 04:30 [From Bactrim] trimethoprim [From Bactrim] Allergy Rash/Hives Verified 10/17/17 04:30 Review of Systems ROS Statement: Those systems with pertinent positive or pertinent negative responses have been documented in the HPI. ROS Other: All systems not noted in ROS Statement are negative. Constitutional: Denies: fever, chills Respiratory: Denies: cough, dyspnea Cardiovascular: Reports: as per HPI, chest pain. Denies: palpitations, edema, syncope Gastrointestinal: Denies: abdominal pain, nausea, vomiting Genitourinary: Denies: dysuria, hematuria Musculoskeletal: Denies: back pain Skin: Denies: rash Neurological: Denies: headache, weakness EKG Findings - EKG Results: EKG: interpreted by ERMD, sinus rhythm, normal axis, normal QRS, normal ST/T - Blocks, [place], Hypertrophy, ST Abn: AV and intraventricular conduction: 1 AV block Past Medical History Past Medical History: Asthma, Pneumonia Additional Past Medical History / Comment(s): Pt states mid August 2017 had watery diarrhea and then red bumps on her skin treated with steroids/ABX and then developed welts/ELVIA and was tx with IV benedryl in EC/pt was able to obtain stool sample and gave to PCP, recently discovered highly positive markers in her blood for possible autoimmune disease, IBS, normally constipated , hemorrhoids, 2012 pneumonia/plerisy/possible COPD, endometriosis with sx, bilateral varicosities, occasional cervical pain/bilateral shoulder pain, "borderline" anemia, past frequent UTIs. History of Any Multi-Drug Resistant Organisms: None Reported Past Surgical History: Orthopedic Surgery, Uterine Ablation Additional Past Surgical History / Comment(s): D&Cs, Novasure uterine ablation, bilateral wrist ORIF, colonoscopy x 2, renal stent d/t frequent UTIs per pt. Past Anesthesia/Blood Transfusion Reactions: No Reported Reaction Past Psychological History: Depression Smoking Status: Never smoker Past Alcohol Use History: Occasional Past Drug Use History: None Reported - Past Family History Father Family Medical History: Eye Disorder Additional Family Medical History / Comment(s): Glaucoma Mother Additional Family Medical History / Comment(s): Pt believes mother has alzhiemer 's dx. General Exam Limitations: no limitations General appearance: alert, in no apparent distress Head exam: Present: atraumatic, normocephalic Eye exam: Present: normal appearance. Absent: scleral icterus, conjunctival injection ENT exam: Present: normal oropharynx Respiratory exam: Present: normal lung sounds bilaterally. Absent: respiratory distress, wheezes, rales, rhonchi, stridor Cardiovascular Exam: Present: regular rate, normal rhythm, normal heart sounds. Absent: systolic murmur, diastolic murmur, rubs, gallop GI/Abdominal exam: Present: soft. Absent: distended, tenderness, guarding, rebound, mass Extremities exam: Present: normal inspection, normal capillary refill. Absent: pedal edema, calf tenderness Back exam: Present: normal inspection. Absent: CVA tenderness (R), CVA tenderness (L) Neurological exam: Present: alert Skin exam: Present: warm, dry, intact, normal color. Absent: rash Course Vital Signs 10/17/17 04:28 Temperature 98.3 F Pulse Rate 67 Respiratory 20 Rate Blood Pressure 140/82 O2 Sat by Pulse 100 Oximetry Disposition Clinical Impression: Chest pain, Urticaria Disposition: HOME SELF-CARE Condition: Good Instructions: Chest Pain (ED), Urticaria (ED) Prescriptions: predniSONE 60 mg PO DAILY #30 tab Is patient prescribed a controlled substance at d/c from ED?: No Referrals: Luis Salazar MD [Primary Care Provider] - 1-2 days Tristan Mcmillan MD [STAFF PHYSICIAN] - 1-2 days Jo Sarkar MD [STAFF PHYSICIAN] - 1-2 days
[2017-10-17 05:12] LABS: Basophils % (A) 1 %; Eosinophils # (A) 0.1 k/uL (0-0.7); Eosinophils % (A) 1 %; HGB 12.4 gm/dL (11.4-16.0); Lymphocytes # (A) 2.2 k/uL (1.0-4.8); Lymphocytes % (A) 42 %; MCHC 33.6 g/dL (31.0-37.0); MCV 92.4 fL (80.0-100.0); Mean Platelet Volume 6.8; Monocytes # (A) 0.3 k/uL (0-1.0); Monocytes % (A) 6 %; Neutrophils # (A) 2.5 k/uL (1.3-7.7); Neutrophils % (A) 48 %; Platelet Count 250 k/uL (150-450); RBC 4.01 m/uL (3.80-5.40); RDW 12.4 % (11.5-15.5); WBC 5.2 k/uL (3.8-10.6)
[2017-10-17 05:21] LABS: ALT 27 U/L (9-52); AST 20 U/L (14-36); Albumin 3.8 g/dL (3.5-5.0); Alkaline Phosphatase 54 U/L (38-126); Anion Gap 7 mmol/L; Blood Urea Nitrogen 13 mg/dL (7-17); Calcium 9.3 mg/dL (8.4-10.2); Carbon Dioxide 26 mmol/L (22-30); Chloride 107 mmol/L (98-107); Glucose 100 mg/dL (74-99); Potassium 4.1 mmol/L (3.5-5.1); Sodium 140 mmol/L (137-145); Total Bilirubin 0.5 mg/dL (0.2-1.3); Total Protein 6.5 g/dL (6.3-8.2)
--- NOTE | 2017-10-17 05:23 | XR ---
EXAMINATION TYPE: XR chest 1V portable DATE OF EXAM: 10/17/2017 COMPARISON: 10/11/2017 HISTORY: Chest pain TECHNIQUE: Single frontal view of the chest is obtained. FINDINGS: Heart and mediastinum are normal. Lungs are clear. Diaphragm is normal. There are chest le ads. Costophrenic angles are clear. Bony thorax is intact. IMPRESSION: Normal chest. No change.
[2017-10-17 05:26] LABS: Creatine Kinase 30 U/L (30-135); Prothrombin Time 9.6 sec (9.0-12.0)
[2017-10-17 05:30] LABS: Partial Thromboplastin Time 21.4 sec (22.0-30.0)
[2017-10-17 05:40] LABS: Creatine Kinase MB 0.4 ng/mL (0.0-2.4); Troponin I <0.012 ng/mL (0.000-0.034)
[2017-10-17 06:08] VITALS: BP 146/84; PULSE 64; RESP 16
== END 2017-10-17 06:06 | disposition home or self-care (01) ==
LOC: EC 04:25
DX: L50.9 Urticaria, unspecified (principal); R07.2 Precordial pain; Z79.52 Long term (current) use of systemic steroids; Z79.899 Other long term (current) drug therapy; Z88.1 Allergy status to other antibiotic agents; Z88.2 Allergy status to sulfonamides; Z88.5 Allergy status to narcotic agent; Z88.8 Allergy status to other drugs, medicaments and biological substances; Z87.898 Personal history of other specified conditions
CPT/HCPCS: 36415; 93005; 80053; 82550; 82553; 83735; 84484; 85025; 85610; 85730; 71045; 99285; 96374; 96375; J1200; J7512

== ENCOUNTER → 2017-10-25 | Outpatient (CLI) | payer OTHER ==
--- NOTE | 2017-10-25 10:22 | US ---
EXAMINATION TYPE: US abdomen complete DATE OF EXAM: 10/25/2017 COMPARISON: NONE CLINICAL HISTORY: 51-year-old female R10.11 abdominal pain. TECHNIQUE: Multiple sonographic images of the abdomen are obtained. FINDINGS: EXAM MEASUREMENTS: Liver Length: 12.8 cm Gallbladder Wall: 0.2 cm CBD: 0.3 cm Spleen: 8.3 cm Right Kidney: 9.8 x 3.1 x 4.6 cm Left Kidney: 10.1 x 3.9 x 3.0 cm Pancreas: Obscured by bowel gas Liver: wnl Gallbladder: wnl Evidence for sonographic Gallo's sign: No CBD: wnl Spleen: wnl Right Kidney: No hydronephrosis. Left Kidney: No hydronephrosis. Inferior pole obscured by bowel gas Upper IVC: wnl Abd Aorta: wnl IMPRESSION: Suboptimal visualization of the pancreas and lower pole left kidney. Otherwise, unremarkable sonograp hic examination of the abdomen.
== END | disposition home or self-care (01) ==
LOC: RADUSWWP 06:59
PROVIDERS: ATTEND Family Medicine
DX: R10.11 Right upper quadrant pain (principal)
CPT/HCPCS: 76700

== ENCOUNTER → 2017-11-04 | Outpatient (CLI) | payer OTHER ==
--- NOTE | 2017-11-04 16:08 | XR ---
EXAMINATION TYPE: XR ankle complete RT DATE OF EXAM: 11/04/2017 COMPARISON: None HISTORY: Door hit back of ankle TECHNIQUE: Three-view right ankle FINDINGS: Soft tissue silhouette is over the medial malleolus. No acute displaced fractures are ident ified. The Achilles region appears within normal limits. No radiopaque foreign bodies are evident. IMPRESSION: 1. No acute osseous abnormality right ankle. 2. Soft tissue swelling medial malleolus 3. Follow-up exams can be performed 7-10 days from acute trauma for continued pain.
--- NOTE | 2017-11-04 16:14 | XR ---
EXAMINATION TYPE: XR tibia fibula RT DATE OF EXAM: 11/04/2017 COMPARISON: None HISTORY: Door hit posterior leg TECHNIQUE: 2 view right tibia and fibula FINDINGS: No acute fractures are evident. No dislocations are evident. Joint spaces are preserved. So ft tissues over the medial malleolus may be present. IMPRESSION: 1. No acute osseous abnormality. 2. Soft tissue swelling medial malleolus. 3. Follow-up exams can be performed 7-10 days from acute trauma for continued pain.
--- NOTE | 2017-11-04 16:14 | XR ---
EXAMINATION TYPE: XR foot complete RT DATE OF EXAM: 11/04/2017 COMPARISON: None HISTORY: Door hit back of leg TECHNIQUE: Three-view right foot FINDINGS: Soft tissue swelling is over the medial malleolus. No acute fractures are evident. Joint sp aces are preserved. IMPRESSION: 1. No acute osseous abnormality. 2. Follow-up can be performed 7-10 days from acute trauma for continued pain.
== END | disposition home or self-care (01) ==
LOC: RADXRMAIN 15:19
PROVIDERS: ATTEND Emergency Medicine
DX: M79.89 Other specified soft tissue disorders (principal)

== ENCOUNTER → 2017-11-09 | Outpatient (CLI) | payer OTHER ==
--- NOTE | 2017-11-09 14:31 | MR ---
MR right ankle HISTORY: Trauma and pain 2 planar multisequence imaging through the right ankle Correlation to plain film dated 11/04/2017 There is extensive subcutaneous edema. Bone marrow signal is maintained. Achilles tendon is intact. P lantar aponeurosis is normal. No evident fracture or dislocation. Flexor and extensor tendons are int act. Peroneal longus and brevis tendons are intact. No evident ligamentous disruption. Varicosities n oted in the subcutaneous fat. No evident ankle joint effusion. Articular cartilage is maintained. IMPRESSION: Subcutaneous edema, there may be associated ecchymosis, additional findings above.
== END | disposition home or self-care (01) ==
LOC: RADMRIMAIN 12:21
PROVIDERS: ATTEND Emergency Medicine
DX: R60.0 Localized edema (principal)

== ENCOUNTER 2018-06-17 22:54 | Emergency (ER) | payer OTHER ==
[2018-06-17 23:30] VITALS: RESP 18
[2018-06-17] MEDS ORDERED: KETOROLAC 30 MG/ML 1 ML VIAL IVP STA (23:33)
[2018-06-17] MEDS ORDERED: SODIUM CHLORIDE 0.9% 1,000 ML IV STA (23:33)
[2018-06-17] MEDS ORDERED: IPRATROPIUM-ALBUTEROL 3 ML NEB INHALATION STA (23:35)
[2018-06-17 23:47] LABS: Basophils % (A) 1 %; Eosinophils # (A) 0.1 k/uL (0-0.7); Eosinophils % (A) 2 %; HCT 35.9 % (34.0-46.0); HGB 12.6 gm/dL (11.4-16.0); Lymphocytes # (A) 1.8 k/uL (1.0-4.8); Lymphocytes % (A) 31 %; MCH 32.6 pg (25.0-35.0); MCV 93.2 fL (80.0-100.0); Mean Platelet Volume 6.8; Monocytes # (A) 0.4 k/uL (0-1.0); Monocytes % (A) 7 %; Neutrophils # (A) 3.2 k/uL (1.3-7.7); Neutrophils % (A) 57 %; Platelet Count 253 k/uL (150-450); RBC 3.85 m/uL (3.80-5.40); RDW 12.1 % (11.5-15.5); WBC 5.7 k/uL (3.8-10.6)
[2018-06-17 23:58] LABS: ALT 35 U/L (9-52); AST 27 U/L (14-36); Albumin 4.6 g/dL (3.5-5.0); Alkaline Phosphatase 66 U/L (38-126); Anion Gap 10 mmol/L; Blood Urea Nitrogen 16 mg/dL (7-17); Calcium 9.6 mg/dL (8.4-10.2); Carbon Dioxide 26 mmol/L (22-30); Chloride 102 mmol/L (98-107); Glucose 89 mg/dL (74-99); Magnesium 1.8 mg/dL (1.6-2.3); Potassium 3.9 mmol/L (3.5-5.1); Sodium 138 mmol/L (137-145); Total Bilirubin 0.6 mg/dL (0.2-1.3); Total Protein 7.3 g/dL (6.3-8.2)
[2018-06-18 00:01] LABS: INR 0.9 (<1.2); Partial Thromboplastin Time 23.3 sec (22.0-30.0); Prothrombin Time 9.9 sec (9.0-12.0)
--- NOTE | 2018-06-18 00:30 | XR ---
EXAM: XR Chest, 2 Views CLINICAL HISTORY: ITS.REASON XR Reason: Chest Pain TECHNIQUE: Frontal and lateral views of the chest. COMPARISON: 10/17/17 FINDINGS: Lungs: Lungs are grossly clear. No acute interval changes. Pleural space: Unremarkable. No pneumothorax. Heart: Normal cardiac and mediastinal silhouette size. Bones/joints: Nonacute. IMPRESSION: No acute findings.
[2018-06-18 01:06] VITALS: BP 122/70; PULSE 80
--- NOTE | 2018-06-18 01:11 | ED ---
SOB HPI - General Source: patient Mode of arrival: wheelchair Limitations: no limitations <Rola Herrera - Last Filed: 06/18/18 01:50> <Tatyana Mccormack - Last Filed: 06/19/18 03:15> - General Chief Complaint: Shortness of Breath Stated Complaint: ELVIA Time Seen by Provider: 06/17/18 23:07 - History of Present Illness Initial Comments: 52-year-old female patient presents to the emergency department today for evaluation of cough, sore throat, and shortness of breath. Patient states symptoms started 2-3 days ago. Patient states she did take breathing treatments today, she admits to using her Brovana once in the morning and this evening. States she thinks it made her symptoms worse. She is also reporting a sharp substernal chest pain. She denies any radiation of the pain through to her back. She denies any relation of the pain to breathing. She denies fever or chills. She denies any leg pain, calf pain or swelling. Denies any recent travel. Denies any history of DVT. Patient denies any recent rash, abdominal pain, nausea, vomiting, diarrhea, constipation, back pain, numbness, tingling, d izziness, weakness, hematuria, dysuria, urinary urgency, urinary frequency, headache, visual changes, or any other complaints. (Rola Herrera) - Related Data Home Medications Medication Instructions Recorded Confirmed Beclomethasone Dipropionate [Qvar 1 puff INHALATION 06/17/18 80 mcg] Cetirizine HCl [Zyrtec] 10 mg PO DAILY 06/17/18 06/17/18 Montelukast [Singulair] 10 mg PO HS 06/17/18 06/17/18 Previous Rx's Medication Instructions Recorded Ipratropium-Albuterol Nebulize 3 ml INHALATION Q4H PRN #30 neb 06/18/18 [Duoneb 0.5 mg-3 mg/3 ml Soln] Nystatin 100,000 Unit/ml Susp 5 ml PO QID #140 ml 06/18/18 [Mycostatin Oral Susp] guaiFENesin-DM 600/30MG [Mucinex 1 each PO Q12HR #10 tab.er.12h 06/18/18 Dm] predniSONE 50 mg PO DAILY #5 tablet 06/18/18 Allergies Allergy/AdvReac Type Severity Reaction Status Date / Time ciprofloxacin [From Cipro] Allergy Rash/Hives Verified 10/17/17 04:30 codeine Allergy Rash/Hives Verified 10/17/17 04:30 hydralazine Allergy FLUSHING / Verified 10/17/17 04:30 Tachycardia sulfamethoxazole Allergy Rash/Hives Verified 10/17/17 04:30 [From Bactrim] trimethoprim [From Bactrim] Allergy Rash/Hives Verified 10/17/17 04:30 Review of Systems ROS Other: All systems not noted in ROS Statement are negative. <Rola Herrera - Last Filed: 06/18/18 01:50> ROS Other: All systems not noted in ROS Statement are negative. <Tatyana Mccormack - Last Filed: 06/19/18 03:15> ROS Statement: Those systems with pertinent positive or pertinent negative responses have been documented in the HPI. Past Medical History Past Medical History: Asthma, Pneumonia Additional Past Medical History / Comment(s): Pt states mid August 2017 had watery diarrhea and then red bumps on her skin treated with steroids/ABX and then developed welts/ELVIA and was tx with IV benedryl in [facility]/pt was able to obtain stool sample and gave to PCP, recently discovered highly positive markers in her blood for possible autoimmune disease, IBS, normally constipated, hemorrhoids, 2012 pneumonia/plerisy/possible COPD, endometriosis with sx, bilateral varicosities, occasional cervical pain/bilateral shoulder pain, "borderline" anemia, past frequent UTIs. History of Any Multi-Drug Resistant Organisms: None Reported Past Surgical History: Orthopedic Surgery, Uterine Ablation Additional Past Surgical History / Comment(s): D&Cs, Novasure uterine ablation, bilateral wrist ORIF, colonoscopy x 2, renal stent d/t frequent UTIs per pt. Past Anesthesia/Blood Transfusion Reactions: No Reported Reaction Past Psychological History: Depression Smoking Status: Never smoker Past Alcohol Use History: Occasional Past Drug Use History: None Reported - Past Family History Father Family Medical History: Eye Disorder Additional Family Medical History / Comment(s): Glaucoma Mother Additional Family Medical History / Comment(s): Pt believes mother has alzhiemer's dx. <Rola Herrera - Last Filed: 06/18/18 01:50> General Exam Limitations: no limitations General appearance: alert, in no apparent distress, other (Physical well- developed, well-nourished adult female patient in no acute distress. Vital signs upon presentation are temperature 97.6F, pulse 76, respirations 26, blood pressure 117/82, pulse ox 100% on room air.) Eye exam: Present: normal appearance, PERRL, EOMI. Absent: scleral icterus, conjunctival injection, periorbital swelling ENT exam: Present: normal exam, normal oropharynx, mucous membranes moist Respiratory exam: Present: normal lung sounds bilaterally. Absent: respiratory distress, wheezes, rales, rhonchi, stridor, chest wall tenderness Cardiovascular Exam: Present: regular rate, normal rhythm, normal heart sounds. Absent: systolic murmur, diastolic murmur, rubs, gallop, clicks GI/Abdominal exam: Present: soft, normal bowel sounds. Absent: distended, tenderness, guarding, rebound, rigid Neurological exam: Present: alert, oriented X3, CN II-XII intact Psychiatric exam: Present: normal affect, normal mood Skin exam: Present: warm, dry, intact, normal color. Absent: rash <Rola Herrera - Last Filed: 06/18/18 01:50> Course Vital Signs 06/17/18 06/17/18 06/17/18 22:58 23:30 23:45 Temperature 97.6 F Pulse Rate 76 71 67 Respiratory 26 H 18 Rate Blood Pressure 117/82 142/82 O2 Sat by Pulse 100 99 Oximetry 06/18/18 06/18/18 06/18/18 00:01 01:06 01:23 Temperature 97.5 F L Pulse Rate 64 80 Respiratory 18 Rate Blood Pressure 122/70 O2 Sat by Pulse 99 Oximetry Medical Decision Making - Lab Data Result diagrams: 06/17/18 23:38 06/17/18 23:38 - EKG Data -: EKG Interpreted by Dc - Radiology Data Radiology results: report reviewed, image reviewed <Rola Herrera - Last Filed: 06/18/18 01:50> - Lab Data Result diagrams: 06/17/18 23:38 06/17/18 23:38 <Tatyana Mccormack - Last Filed: 06/19/18 03:15> - Medical Decision Making 52-year-old female patient presented to the emergency department today for evaluation of shortness of breath and sharp substernal chest pain. Physical examination was unremarkable. Lungs are clear to auscultation with good air movement. Patient does have a cough that is nonproductive. Sore throat with white plaques in the back of the throat. Patient is admitted to doing breathing treatments she states she does rinse her mouth but there is concern for thrush with this we will administer nystatin swish and swallow. Labs reviewed and are unremarkable. Chest x-ray shows no acute cardiopulmonary process. EKG shows normal sinus rhythm with a first-degree AV block. No evidence of ST elevation or depression. Upon reevaluation patient is feeling better. We did discuss findings and results. Some is are consistent with acute bronchitis patient be given prescription for nystatin swish and swallow, DuoNeb breathing treatments, Mucinex DM, and prednisone. She is instructed to follow-up with her primary care physician for recheck Tuesday. Return parameters were discussed in detail. She verbalizes understanding and agrees with this plan. (Rola Herrera) I was available for consultation in the emergency department. The history and physical exam were done by the midlevel provider. I was consulted for this patient's care. I reviewed the case with the midlevel provider and based on their presentation of the patient, I agree with the assessment, medical decision making and plan of care as documented. Chart was dictated using [employer] dictation software. Attempts were made to correct any dictation errors however some typographical errors may persist. (Tatyana Mccormack) - Lab Data Lab Results 06/17/18 06/17/18 06/17/18 Range/Units 23:38 23:38 23:38 WBC 5.7 (3.8-10.6) k/uL RBC 3.85 (3.80-5.40) m/uL Hgb 12.6 (11.4-16.0) gm/dL Hct 35.9 (34.0-46.0) % MCV 93.2 (80.0-100.0) fL MCH 32.6 (25.0-35.0) pg MCHC 35.0 (31.0-37.0) g/dL RDW 12.1 (11.5-15.5) % Plt Count 253 (150-450) k/uL Neutrophils % 57 % Lymphocytes % 31 % Monocytes % 7 % Eosinophils % 2 % Basophils % 1 % Neutrophils # 3.2 (1.3-7.7) k/uL Lymphocytes # 1.8 (1.0-4.8) k/uL Monocytes # 0.4 (0-1.0) k/uL Eosinophils # 0.1 (0-0.7) k/uL Basophils # 0.0 (0-0.2) k/uL PT 9.9 (9.0-12.0) sec INR 0.9 (<1.2) APTT 23.3 (22.0-30.0) sec Sodium 138 (137-145) mmol/L Potassium 3.9 (3.5-5.1) mmol/L Chloride 102 (98-107) mmol/L Carbon Dioxide 26 (22-30) mmol/L Anion Gap 10 mmol/L BUN 16 (7-17) mg/dL Creatinine 0.67 (0.52-1.04) mg/dL Est GFR (CKD-EPI)AfAm >90 (>60 ml/min/1.73 sqM) Est GFR (CKD-EPI)NonAf >90 (>60 ml/min/1.73 sqM) Glucose 89 (74-99) mg/dL Calcium 9.6 (8.4-10.2) mg/dL Magnesium 1.8 (1.6-2.3) mg/dL Total Bilirubin 0.6 (0.2-1.3) mg/dL AST 27 (14-36) U/L ALT 35 (9-52) U/L Alkaline Phosphatase 66 (38-126) U/L Troponin I (0.000-0.034) ng/mL Total Protein 7.3 (6.3-8.2) g/dL Albumin 4.6 (3.5-5.0) g/dL Group A Strep Rapid (Negative) 06/17/18 06/17/18 Range/Units 23:38 23:38 WBC (3.8-10.6) k/uL RBC (3.80-5.40) m/uL Hgb (11.4-16.0) gm/dL Hct (34.0-46.0) % MCV (80.0-100.0) fL MCH (25.0-35.0) pg MCHC (31.0-37.0) g/dL RDW (11.5-15.5) % Plt Count (150-450) k/uL Neutrophils % % Lymphocytes % % Monocytes % % Eosinophils % % Basophils % % Neutrophils # (1.3-7.7) k/uL Lymphocytes # (1.0-4.8) k/uL Monocytes # (0-1.0) k/uL Eosinophils # (0-0.7) k/uL Basophils # (0-0.2) k/uL PT (9.0-12.0) sec INR (<1.2) APTT (22.0-30.0) sec Sodium (137-145) mmol/L Potassium (3.5-5.1) mmol/L Chloride (98-107) mmol/L Carbon Dioxide (22-30) mmol/L Anion Gap mmol/L BUN (7-17) mg/dL Creatinine (0.52-1.04) mg/dL Est GFR (CKD-EPI)AfAm (>60 ml/min/1.73 sqM) Est GFR (CKD-EPI)NonAf (>60 ml/min/1.73 sqM) Glucose (74-99) mg/dL Calcium (8.4-10.2) mg/dL Magnesium (1.6-2.3) mg/dL Total Bilirubin (0.2-1.3) mg/dL AST (14-36) U/L ALT (9-52) U/L Alkaline Phosphatase (38-126) U/L Troponin I <0.012 (0.000-0.034) ng/mL Total Protein (6.3-8.2) g/dL Albumin (3.5-5.0) g/dL Group A Strep Rapid Negative (Negative) - EKG Data EKG Comments: EKG obtained at 2337 shows sinus rhythm with first-degree AV block, incomplete right bundle branch block. Ventricular rate is 73, IA interval 212, QRS duration 104, QT 388, QTC 427. No evidence of significant ST elevation or depression (Rola Herrera) - Radiology Data Two-view x-ray of the chest is obtained, report was reviewed in its entirety. Impression by Dr. Kaur shows no acute findings. (oRla Herrera) Disposition Is patient prescribed a controlled substance at d/c from ED?: No Time of Disposition: 01:11 <SharonRola M - Last Filed: 06/18/18 01:50> <Tatyana Mccormack - Last Filed: 06/19/18 03:15> Clinical Impression: Acute bronchitis, Pharyngeal candidiasis, Pleurisy Disposition: HOME SELF-CARE Condition: Good Instructions (If sedation given, give patient instructions): Pleurisy (ED), Oral Candidiasis (ED), Acute Bronchitis (ED) Additional Instructions: Take medications as directed. Take Tylenol and Motrin for pain control. Complete steroid prescription in full. Follow-up with your primary care physician for recheck in 1-2 days. Return to the emergency department immediately for any new, worsening, or concerning symptoms per Prescriptions: Ipratropium-Albuterol Nebulize [Duoneb 0.5 mg-3 mg/3 ml Soln] 3 ml INHALATION Q4H PRN #30 neb PRN Reason: Wheezing/Shortness of breath guaiFENesin-DM 600/30MG [Mucinex Dm] 1 each PO Q12HR #10 tab.er.12h Nystatin 100,000 Unit/ml Susp [Mycostatin Oral Susp] 5 ml PO QID #140 ml predniSONE 50 mg PO DAILY #5 tablet Referrals: Luis Salazar MD [Primary Care Provider] - 1-2 days
[2018-06-18 01:24] VITALS: TEMP 97.5
== END 2018-06-18 01:24 | disposition home or self-care (01) ==
LOC: EC 22:54
DX: J20.9 Acute bronchitis, unspecified (principal); B37.89 Other sites of candidiasis; R09.1 Pleurisy; I44.0 Atrioventricular block, first degree; J45.909 Unspecified asthma, uncomplicated; F32.9 Major depressive disorder, single episode, unspecified; Z79.51 Long term (current) use of inhaled steroids; Z79.899 Other long term (current) drug therapy; Z88.1 Allergy status to other antibiotic agents; Z88.5 Allergy status to narcotic agent; Z88.2 Allergy status to sulfonamides; Z88.8 Allergy status to other drugs, medicaments and biological substances
CPT/HCPCS: 36415; 94640; 93005; 80053; 83735; 84484; 85025; 85610; 85730; 87081; 87430; 71046; 99285; 96374; 96361; J1885

== ENCOUNTER 2018-09-11 13:32 | Emergency (ER) | payer OTHER ==
[2018-09-11 13:40] VITALS: RESP 18
[2018-09-11] MEDS ORDERED: SODIUM CHLORIDE 0.9% 1,000 ML IV STA (14:08)
[2018-09-11] MEDS ORDERED: ONDANSETRON 4 MG/2 ML VIAL IVP STA (14:08)
[2018-09-11] MEDS ORDERED: KETOROLAC 30 MG/ML 1 ML VIAL IVP STA (14:08)
[2018-09-11 14:28] LABS: Basophils # (A) 0.1 k/uL (0-0.2); Basophils % (A) 1 %; Eosinophils # (A) 0.1 k/uL (0-0.7); Eosinophils % (A) 2 %; HCT 35.9 % (34.0-46.0); HGB 12.3 gm/dL (11.4-16.0); Lymphocytes # (A) 1.4 k/uL (1.0-4.8); Lymphocytes % (A) 25 %; MCH 30.7 pg (25.0-35.0); MCHC 34.3 g/dL (31.0-37.0); MCV 89.6 fL (80.0-100.0); Mean Platelet Volume 7.6; Monocytes # (A) 0.2 k/uL (0-1.0); Monocytes % (A) 4 %; Neutrophils # (A) 3.5 k/uL (1.3-7.7); Neutrophils % (A) 66 %; Platelet Count 269 k/uL (150-450); RDW 12.6 % (11.5-15.5); WBC 5.3 k/uL (3.8-10.6)
[2018-09-11 14:29] LABS: ALT 25 U/L (9-52); AST 25 U/L (14-36); African American GFR (CKD) >90 (>60 ml/min/1.73 sqM); Albumin 4.4 g/dL (3.5-5.0); Alkaline Phosphatase 61 U/L (38-126); Anion Gap 9 mmol/L; Blood Urea Nitrogen 14 mg/dL (7-17); Calcium 9.6 mg/dL (8.4-10.2); Carbon Dioxide 25 mmol/L (22-30); Chloride 103 mmol/L (98-107); Glucose 97 mg/dL (74-99); Potassium 4.3 mmol/L (3.5-5.1); Sodium 137 mmol/L (137-145); Total Bilirubin 0.5 mg/dL (0.2-1.3)
--- NOTE | 2018-09-11 14:39 | ED ---
Abdominal Pain HPI - General Chief Complaint: Abdominal Pain Stated Complaint: Right Side Pain Time Seen by Provider: 09/11/18 13:47 Source: patient Mode of arrival: ambulatory - History of Present Illness Initial Comments: Patient is a 52-year-old female presenting to the emergency Department with complaints of upper right quadrant pain x this morning. Patient states the pain started suddenly this morning when she woke up and has been progressively getting worse throughout the day. Patient states she has a hard time walking straight up and down and has to lean forward to decrease the pain. Patient states the pain has been radiating to the right side as well. Patient admits to history of laparoscopy for endometriosis, no other abdominal surgeries. Patient denies fever, chills, urinary symptoms, vomiting, chest pain. Patient tried taking Motrin this morning without relief. No other complaints at this time. - Related Data Home Medications Medication Instructions Recorded Confirmed Cetirizine HCl [Zyrtec] 10 mg PO DAILY 06/17/18 09/11/18 Montelukast [Singulair] 10 mg PO HS 06/17/18 09/11/18 Tiotropium 18 Mcg/Puff [Spiriva] 1 puff INHALATION RT-DAILY 09/11/18 09/11/18 Allergies Allergy/AdvReac Type Severity Reaction Status Date / Time ciprofloxacin [From Cipro] Allergy Rash/Hives Verified 09/11/18 13:58 codeine Allergy Rash/Hives Verified 09/11/18 13:58 hydralazine Allergy FLUSHING / Verified 09/11/18 13:58 Tachycardia sulfamethoxazole Allergy Rash/Hives Verified 09/11/18 13:58 [From Bactrim] trimethoprim [From Bactrim] Allergy Rash/Hives Verified 09/11/18 13:58 Review of Systems ROS Statement: Those systems with pertinent positive or pertinent negative responses have been documented in the HPI. ROS Other: All systems not noted in ROS Statement are negative. Past Medical History Past Medical History: Asthma, Pneumonia Additional Past Medical History / Comment(s): Pt states mid August 2017 had watery diarrhea and then red bumps on her skin treated with steroids/ABX and then developed welts/ELVIA and was tx with IV benedryl in [facility]/pt was able to obtain stool sample and gave to PCP, recently discovered highly positive markers in her blood for possible autoimmune disease, IBS, normally constipated, hemorrhoids, 2012 pneumonia/plerisy/possible COPD, endometriosis with sx, bilateral varicosities, occasional cervical pain/bilateral shoulder pain, "borderline" anemia, past frequent UTIs.Fractured bilateral wrists. History of Any Multi-Drug Resistant Organisms: None Reported Past Surgical History: Orthopedic Surgery, Uterine Ablation Additional Past Surgical History / Comment(s): D&Cs, Novasure uterine ablation, bilateral wrist ORIF, colonoscopy x 2, renal stent d/t frequent UTIs per pt. Past Anesthesia/Blood Transfusion Reactions: No Reported Reaction Past Psychological History: Depression Smoking Status: Never smoker Past Alcohol Use History: Occasional Past Drug Use History: None Reported - Past Family History Father Family Medical History: Eye Disorder Additional Family Medical History / Comment(s): Glaucoma Mother Additional Family Medical History / Comment(s): Pt believes mother has alzhiemer's dx. General Exam - General Exam Comments Initial Comments: GENERAL: Well-appearing, well-nourished and in no acute distress. HEAD: Atraumatic, normocephalic. EYES: Pupils equal round and reactive to light, extraocular movements intact, sclera anicteric, conjunctiva are normal. ENT: TMs normal, nares patent, oropharynx clear without exudates. Moist mucous membranes. NECK: Normal range of motion, supple without lymphadenopathy or JVD. LUNGS: Breath sounds clear to auscultation bilaterally and equal. No wheezes rales or rhonchi. HEART: Regular rate and rhythm without murmurs, rubs or gallops. ABDOMEN: Tender to palpation of the right upper quadrant, positive Gallo's sign. Pain also extends the right side. Soft, normoactive bowel sounds. No rebound. No masses appreciated. : Deferred EXTREMITIES: Normal range of motion, no pitting or edema. No clubbing or cyanosis. NEUROLOGICAL: Cranial nerves II through XII grossly intact. Normal speech, normal gait. PSYCH: Normal mood, normal affect. SKIN: Warm, Dry, normal turgor, no rashes or lesions noted. Course Vital Signs 09/11/18 09/11/18 13:35 15:23 Temperature 98.0 F 97 F L Pulse Rate 60 74 Respiratory 18 18 Rate Blood Pressure 146/84 125/71 O2 Sat by Pulse 100 97 Oximetry Medical Decision Making - Medical Decision Making Patient is a 52-year-old female presenting with right upper quadrant pain since this morning. Patient admits to associated nausea but no vomiting, fever, chills, urinary symptoms at this time. On exam patient is afebrile, right upper quadrant tenderness with positive Gallo sign. An ultrasound was obtained of the gallbladder. Ultrasound showed common bile duct at the upper limits of normal with no evidence of gallstones. There is a small 7 mm lesion on the left lobe of liver that is most likely related to small hemangioma. This finding was discussed with the patient. CBC, CMP, UA are all within normal limits. Findings were discussed with the patient and she is okay with being discharged home. Case was discussed with Dr. August who is in agreement with this plan. Return parameters were discussed with the patient and she verbalized understanding. - Lab Data Result diagrams: 09/11/18 14:10 09/11/18 14:10 Lab Results 09/11/18 09/11/18 09/11/18 Range/Units 14:10 14:10 14:10 WBC 5.3 (3.8-10.6) k/uL RBC 4.00 (3.80-5.40) m/uL Hgb 12.3 (11.4-16.0) gm/dL Hct 35.9 (34.0-46.0) % MCV 89.6 (80.0-100.0) fL MCH 30.7 (25.0-35.0) pg MCHC 34.3 (31.0-37.0) g/dL RDW 12.6 (11.5-15.5) % Plt Count 269 (150-450) k/uL Neutrophils % 66 % Lymphocytes % 25 % Monocytes % 4 % Eosinophils % 2 % Basophils % 1 % Neutrophils # 3.5 (1.3-7.7) k/uL Lymphocytes # 1.4 (1.0-4.8) k/uL Monocytes # 0.2 (0-1.0) k/uL Eosinophils # 0.1 (0-0.7) k/uL Basophils # 0.1 (0-0.2) k/uL Sodium 137 (137-145) mmol/L Potassium 4.3 (3.5-5.1) mmol/L Chloride 103 (98-107) mmol/L Carbon Dioxide 25 (22-30) mmol/L Anion Gap 9 mmol/L BUN 14 (7-17) mg/dL Creatinine 0.60 (0.52-1.04) mg/dL Est GFR (CKD-EPI)AfAm >90 (>60 ml/min/1.73 sqM) Est GFR (CKD-EPI)NonAf >90 (>60 ml/min/1.73 sqM) Glucose 97 (74-99) mg/dL Calcium 9.6 (8.4-10.2) mg/dL Total Bilirubin 0.5 (0.2-1.3) mg/dL AST 25 (14-36) U/L ALT 25 (9-52) U/L Alkaline Phosphatase 61 (38-126) U/L Total Protein 7.0 (6.3-8.2) g/dL Albumin 4.4 (3.5-5.0) g/dL Urine Color Urine Appearance (Clear) Urine pH (5.0-8.0) Ur Specific [place] (1.001-1.035) Urine Protein (Negative) Urine Glucose (UA) (Negative) Urine Ketones (Negative) Urine Blood (Negative) Urine Nitrite (Negative) Urine Bilirubin (Negative) Urine Urobilinogen (<2.0) mg/dL Ur Leukocyte Esterase (Negative) Urine RBC (0-5) /hpf Urine WBC (0-5) /hpf Ur Squamous Epith Cells (0-4) /hpf Hyaline Casts (0-2) /lpf Urine Mucus (None) /hpf Urine HCG, Qual Not Detected (Not Detectd) 09/11/18 Range/Units 14:10 WBC (3.8-10.6) k/uL RBC (3.80-5.40) m/uL Hgb (11.4-16.0) gm/dL Hct (34.0-46.0) % MCV (80.0-100.0) fL MCH (25.0-35.0) pg MCHC (31.0-37.0) g/dL RDW (11.5-15.5) % Plt Count (150-450) k/uL Neutrophils % % Lymphocytes % % Monocytes % % Eosinophils % % Basophils % % Neutrophils # (1.3-7.7) k/uL Lymphocytes # (1.0-4.8) k/uL Monocytes # (0-1.0) k/uL Eosinophils # (0-0.7) k/uL Basophils # (0-0.2) k/uL Sodium (137-145) mmol/L Potassium (3.5-5.1) mmol/L Chloride (98-107) mmol/L Carbon Dioxide (22-30) mmol/L Anion Gap mmol/L BUN (7-17) mg/dL Creatinine (0.52-1.04) mg/dL Est GFR (CKD-EPI)AfAm (>60 ml/min/1.73 sqM) Est GFR (CKD-EPI)NonAf (>60 ml/min/1.73 sqM) Glucose (74-99) mg/dL Calcium (8.4-10.2) mg/dL Total Bilirubin (0.2-1.3) mg/dL AST (14-36) U/L ALT (9-52) U/L Alkaline Phosphatase (38-126) U/L Total Protein (6.3-8.2) g/dL Albumin (3.5-5.0) g/dL Urine Color Yellow Urine Appearance Clear (Clear) Urine pH 5.5 (5.0-8.0) Ur Specific [place] 1.017 (1.001-1.035) Urine Protein Negative (Negative) Urine Glucose (UA) Negative (Negative) Urine Ketones Negative (Negative) Urine Blood Small H (Negative) Urine Nitrite Negative (Negative) Urine Bilirubin Negative (Negative) Urine Urobilinogen <2.0 (<2.0) mg/dL Ur Leukocyte Esterase Small H (Negative) Urine RBC 2 (0-5) /hpf Urine WBC 5 (0-5) /hpf Ur Squamous Epith Cells <1 (0-4) /hpf Hyaline Casts 1 (0-2) /lpf Urine Mucus Rare H (None) /hpf Urine HCG, Qual (Not Detectd) Disposition Clinical Impression: Abdominal pain Disposition: HOME SELF-CARE Condition: Stable Instructions (If sedation given, give patient instructions): Abdominal Pain (ED) Additional Instructions: Please return to the Emergency Department if symptoms worsen or any other concerns. Is patient prescribed a controlled substance at d/c from ED?: No Referrals: Luis Salazar MD [Primary Care Provider] - 1-2 days
[2018-09-11 14:43] LABS: Appearance,Urine Clear (Clear); Bilirubin,Urine Negative (Negative); Blood,Urine Small (Negative); Color,Urine Yellow; Glucose,Urine (UA) Negative (Negative); Hyaline Casts,Urine 1 /lpf (0-2); Ketones,Urine Negative (Negative); Leukocyte Esterase,Urine Small (Negative); Mucus,Urine Rare /hpf; Nitrite,Urine Negative (Negative); PH, Urine 5.5 (5.0-8.0); Protein,Urine Negative (Negative); RBC,Urine 2 /hpf (0-5); Specific Gravity,Urine 1.017 (1.001-1.035); Squamous Epithelial Cell,Urine <1 /hpf (0-4); Urobilinogen,Urine <2.0 mg/dL (<2.0)
--- NOTE | 2018-09-11 15:22 | US ---
EXAMINATION TYPE: US gallbladder DATE OF EXAM: 09/11/2018 COMPARISON: US 2018 CLINICAL HISTORY: Pain. RUQ pain x 1 day EXAM MEASUREMENTS: Liver Length: 12.9 cm Gallbladder Wall: 0.2 cm CBD: 0.6 cm Right Kidney: 10.0 x 4.1 x 4.8 cm Pancreas: visualized portions wnl, limited by overlying midline bowel gas Liver: mildly heterogeneous, 0.6 x 0.5 x 0.7cm hyperechoic lesion anterior left lobe Gallbladder: wnl Evidence for sonographic Gallo's sign: yes CBD: borderline dilated at 0.6cm Right Kidney: wnl IMPRESSION: 1. Common bile duct at the upper limits of normal with no evidence of gallstones. 2. Liver is heterogeneous correlate for hepatocellular disease, hepatic steatosis or hepatitis. Hypoe choic lesion in the left lobe measures 7 mm most likely related to small hemangioma. This could be co nfirmed with CT scan with delayed imaging.
[2018-09-11 15:24] VITALS: BP 125/71; PULSE 74; TEMP 97
== END 2018-09-11 15:54 | disposition home or self-care (01) ==
LOC: EC 13:32
DX: R10.11 Right upper quadrant pain (principal); R11.0 Nausea; K76.9 Liver disease, unspecified; J45.909 Unspecified asthma, uncomplicated; Z79.899 Other long term (current) drug therapy; Z88.1 Allergy status to other antibiotic agents; Z88.2 Allergy status to sulfonamides; Z88.5 Allergy status to narcotic agent; Z88.8 Allergy status to other drugs, medicaments and biological substances
CPT/HCPCS: 36415; 80053; 85025; 81001; 81025; 76705; 99284; 96374; 96375; 96361; J2405; J1885

== ENCOUNTER 2018-10-23 11:22 | Observation (INO) | payer OTHER ==
[2018-10-23 13:10] VITALS: BMI 28.9
[2018-10-23] MEDS: SODIUM CHLORIDE 0.9% 1,000 ML IV SCH (15:00)
[2018-10-23 16:43] LABS: Basophils % (A) 0 %; Eosinophils # (A) 0.1 k/uL (0-0.7); Eosinophils % (A) 2 %; HCT 36.3 % (34.0-46.0); HGB 12.5 gm/dL (11.4-16.0); Lymphocytes # (A) 1.7 k/uL (1.0-4.8); Lymphocytes % (A) 30 %; MCH 31.3 pg (25.0-35.0); MCHC 34.4 g/dL (31.0-37.0); MCV 90.8 fL (80.0-100.0); Mean Platelet Volume 7.4; Monocytes # (A) 0.3 k/uL (0-1.0); Monocytes % (A) 6 %; Neutrophils # (A) 3.4 k/uL (1.3-7.7); Neutrophils % (A) 61 %; Platelet Count 271 k/uL (150-450); RDW 12.7 % (11.5-15.5); WBC 5.5 k/uL (3.8-10.6)
[2018-10-23 16:52] LABS: ALT 21 U/L (9-52); AST 21 U/L (14-36); African American GFR (CKD) >90 (>60 ml/min/1.73 sqM); Albumin 4.1 g/dL (3.5-5.0); Alkaline Phosphatase 58 U/L (38-126); Anion Gap 8 mmol/L; Blood Urea Nitrogen 15 mg/dL (7-17); Calcium 9.6 mg/dL (8.4-10.2); Carbon Dioxide 29 mmol/L (22-30); Chloride 103 mmol/L (98-107); Glucose 87 mg/dL (74-99); Potassium 4.2 mmol/L (3.5-5.1); Sodium 140 mmol/L (137-145); Total Bilirubin 0.6 mg/dL (0.2-1.3); Total Protein 6.9 g/dL (6.3-8.2)
[2018-10-23 17:31] LABS: Erythrocyte Sedimentation Rate 13 mm/hr (0-20)
[2018-10-23] MEDS: methylPREDNISolone SOD SUCCI 40 MG/ML 1 ML VIAL IV SCH ×2 (18:12→23:55)
[2018-10-23] MEDS: MONTELUKAST 10 MG TAB PO SCH (20:12)
[2018-10-24] MEDS: SODIUM CHLORIDE 0.9% 1,000 ML IV SCH ×2 (05:33→17:02)
[2018-10-24] MEDS: methylPREDNISolone SOD SUCCI 40 MG/ML 1 ML VIAL IV SCH ×3 (06:06→17:59)
[2018-10-24] MEDS: SPIRIVA RESPIMAT INHALATION SCH (07:07)
--- NOTE | 2018-10-24 08:27 | HP ---
HISTORY AND PHYSICAL A 52-year-old white female who has chronic history of chronic urticaria and severe allergic rhinitis, allergic asthma, presented with failed outpatient treatment to severe infection on the anterior portion of the right foot, circumferential about 4 inches diameter with severe redness and weeping with multiple open wounds in the middle of the area. Failed outpatient treatment with antibiotics, steroids, etc. She was admitted due to significant cellulitis of the right foot and IV antibiotics. She is started on Solu-Medrol for possible autoimmune disease as well as cefazolin. Waiting for Infectious Disease consult. HOME MEDICATIONS: Include Spiriva for asthma, Singulair 10 mg daily, Zyrtec 10 mg daily, Ventolin HFA 2 puffs q.4-6 hours p.r.n. 14 POINT REVIEW OF SYSTEMS: Negative except for as mentioned in HPI. PHYSICAL EXAMINATION: VITAL SIGNS: Stable and reviewed. CARDIOVASCULAR: S1, S2. LUNGS: Clear. GI: Soft. HEMATOLOGY: Negative Homans. PSYCH: Fair mood and affect. OPHTHALMOLOGIC: Pupils equal, round, reactive to light and accommodation. NEUROLOGIC: Alert and orient x3. INTEGUMENT: As mentioned on the right anterior of the foot shows 4 inch diameter redness with significant weeping and open wound to the mid area of this wound. ASSESSMENT: 1. Cellulitis of the right foot, failed outpatient treatment. 2. Chronic urticaria. 3. Chronic allergic asthma, chronic allergic rhinitis and chronic urticaria. Continue on cefazolin and steroids. Await for Infectious Disease consultation and possible Dr. Cruz for skin disease. MMODL / IJN: [id number] /
[2018-10-24 08:30] LABS: ALT 21 U/L (9-52); AST 21 U/L (14-36); African American GFR (CKD) >90 (>60 ml/min/1.73 sqM); Albumin 4.3 g/dL (3.5-5.0); Alkaline Phosphatase 58 U/L (38-126); Anion Gap 9 mmol/L; Basophils % (A) 0 %; Blood Urea Nitrogen 12 mg/dL (7-17); Calcium 9.9 mg/dL (8.4-10.2); Carbon Dioxide 26 mmol/L (22-30); Chloride 105 mmol/L (98-107); Eosinophils % (A) 0 %; Glucose 133 mg/dL (74-99); HCT 38.5 % (34.0-46.0); HGB 13.1 gm/dL (11.4-16.0); Lymphocytes # (A) 0.5 k/uL (1.0-4.8); Lymphocytes % (A) 7 %; MCH 31.5 pg (25.0-35.0); MCHC 34.2 g/dL (31.0-37.0); MCV 92.2 fL (80.0-100.0); Mean Platelet Volume 6.8; Monocytes # (A) 0.1 k/uL (0-1.0); Monocytes % (A) 1 %; Neutrophils # (A) 6.7 k/uL (1.3-7.7); Neutrophils % (A) 91 %; Platelet Count 309 k/uL (150-450); Potassium 4.4 mmol/L (3.5-5.1); RBC 4.17 m/uL (3.80-5.40); RDW 11.7 % (11.5-15.5); Sodium 140 mmol/L (137-145); Total Bilirubin 0.6 mg/dL (0.2-1.3); Total Protein 7.2 g/dL (6.3-8.2); WBC 7.3 k/uL (3.8-10.6)
[2018-10-24] MEDS: ZYRTEC 10MG TABLET PO SCH (08:34)
[2018-10-24] MEDS ORDERED: TRIAMCINOLONE 0.1% CREAM 80 GM TUBE TOPICAL SCH (13:45)
[2018-10-24] MEDS ORDERED: NYSTATIN 100,000UNIT/GM CREAM 30 GM TUBE TOPICAL SCH (13:45)
[2018-10-24] MEDS: CALCIUM ACETATE-ALUMINUM SULF 1 EACH PACKET TOPICAL SCH (19:05)
[2018-10-24] MEDS: BETAMETHASONE DIPROPIONATE 0.05% OINTMENT 45 GM TUBE TOPICAL SCH (19:51)
[2018-10-24] MEDS: MONTELUKAST 10 MG TAB PO SCH (20:44)
[2018-10-25] MEDS: methylPREDNISolone SOD SUCCI 40 MG/ML 1 ML VIAL IV SCH ×3 (00:10→11:56)
[2018-10-25] MEDS: SODIUM CHLORIDE 0.9% 1,000 ML IV SCH (06:46)
[2018-10-25] MEDS: ZYRTEC 10MG TABLET PO SCH (08:32)
[2018-10-25] MEDS: CALCIUM ACETATE-ALUMINUM SULF 1 EACH PACKET TOPICAL SCH (08:33)
--- NOTE | 2018-10-25 09:40 | CONS ---
CONSULTATION Thank you for asking me to evaluate your patient, a 52-year-old female admitted for cellulitis of the right foot, which we were consulted to evaluate. Patient states she developed a rash approximately 6 weeks ago. She states she was given a Medrol Dosepak and hydrocortisone by her primary care with little improvement and she was also using Neosporin. Patient states this is the second time the rash has occurred on the same foot approximately 1 year ago was the previous time. PAST MEDICAL HISTORY: Allergic asthma, chronic urticaria, allergic rhinitis. PAST SURGICAL HISTORY: Bilateral wrist surgery in 2013. FAMILY MEDICAL HISTORY: Noncontributory. SOCIAL: Unknown. MEDICATIONS: Spiriva, Zyrtec, Singulair and Ventolin. ALLERGIES: SULFA and CIPRO. PHYSICAL EXAMINATION: On examination, there is a coin shaped area of erythema with multiple vesicles with weeping on the dorsal side of the right foot. DIAGNOSIS: Contact dermatitis, possibly secondary to use of Neosporin on the dorsal side of the right foot. TREATMENT: Betamethasone ointment, apply b.i.d. to affected area on right foot, keep under occlusion for the first three nights. [place] soaks, soak affected area twice a day for 20 minutes each soak. Advised patient to avoid use of Neosporin [id number] in the future. The patient is to follow up in our office in 1 week. MMODL / IJN: [id number] / JULIANNA
[2018-10-25] MEDS: SPIRIVA RESPIMAT INHALATION SCH (09:43)
[2018-10-25 10:02] VITALS: RESP 16
[2018-10-25] MEDS: BETAMETHASONE DIPROPIONATE 0.05% OINTMENT 45 GM TUBE TOPICAL SCH (10:25)
[2018-10-25 13:07] VITALS: BP 118/77; PULSE 63; TEMP 98.2
--- NOTE | 2018-10-25 14:37 | P.CONS ---
History of Present Illness - Reason for Consult Consult date: 10/24/18 right foot wound and cellulitis Requesting physician: Luis Salazar - Chief Complaint right foot pain swelling x few days - History of Present Illness Patient is a 52-year-old female who apparently developed a blister on the dorsum aspect of her right foot approximately 6 weeks ago the patient denies any history of any trauma or using any ill fitting shoes the patient says she went to see her primary care physician who did open the blister since then the area has not healed up completely, and has been treated with multiple courses of oral antibiotic and local steroids cream patient did develop a small blister To the initial area and she having more swelling and redness to the dorsum of the right foot for the patient was admitted directly to the hospital, the patient currently denies having any fever or any chills, the patient did have a leaking pain to the foot area intensity about 5-6 out of 10 and no radiation currently with no purulent drainage, patient to be started on cefazolin and infection it was consulted for further recommendation regarding antibiotic therapy Review of Systems Positive point has been mentioned in the HPI rest of the systems are negative Past Medical History Past Medical History: Asthma, Pneumonia Additional Past Medical History / Comment(s): IBS, occas diarrhea hemorrhoids, 2012 pneumonia/plerisy/possible COPD, endometriosis with sx, bilateral varicosities, occasional cervical pain/bilateral shoulder pain, "borderline" anemia, past frequent UTIs.Fractured bilateral wrists. History of Any Multi-Drug Resistant Organisms: None Reported Past Surgical History: Orthopedic Surgery, Uterine Ablation Additional Past Surgical History / Comment(s): D&Cs, Novasure uterine ablation, bilateral wrist ORIF, colonoscopy x 2, renal stent d/t frequent UTIs per pt. Past Anesthesia/Blood Transfusion Reactions: No Reported Reaction Additional Past Anesthesia/Blood Transfusion Reaction / Comm: never had blood transfusion Past Psychological History: No Psychological Hx Reported Additional Psychological History / Comment(s): Pt resides with her spouse. She is independent. She recently got promoted to [employer]. She had problems with depression back in 1997 but denies problems at this time. Smoking Status: Never smoker Past Alcohol Use History: Occasional Past Drug Use History: None Reported - Past Family History Father Family Medical History: Eye Disorder Additional Family Medical History / Comment(s): Glaucoma, knee issues Mother Family Medical History: Seizure Disorder Additional Family Medical History / Comment(s): Pt believes mother has alzhiemer's dx. Medications and Allergies Home Medications Medication Instructions Recorded Confirmed Type Cetirizine HCl [Zyrtec] 10 mg PO DAILY 06/17/18 10/23/18 History Montelukast [Singulair] 10 mg PO HS 06/17/18 10/23/18 History Tiotropium 18 Mcg/Puff [Spiriva] 1 puff INHALATION RT-DAILY 09/11/18 10/23/18 History Albuterol Inhaler [Ventolin Hfa 1 - 2 puff INHALATION RT-Q6H PRN 10/23/18 10/23/18 History Inhaler] diphenhydrAMINE [Benadryl] 25 mg PO BID 10/23/18 10/23/18 History Betamethasone Dipropionate 1 applic TOPICAL BID applic 10/25/18 Rx [Diprolene 0.05% Ointment] Calcium Acetate-Aluminum Sulf 1 each TOPICAL BID packet 10/25/18 Rx [[place]ome[place] Packet] Omeprazole 20 mg PO DAILY #15 cap 10/25/18 Rx predniSONE 10 mg PO DIRECTED #30 tab 10/25/18 Rx Allergies Allergy/AdvReac Type Severity Reaction Status Date / Time ciprofloxacin [From Cipro] Allergy Rash/Hives Verified 10/23/18 13:56 codeine Allergy Rash/Hives Verified 10/23/18 13:56 hydralazine Allergy FLUSHING / Verified 10/23/18 13:56 Tachycardia sulfamethoxazole Allergy Rash/Hives Verified 10/23/18 13:56 [From Bactrim] trimethoprim [From Bactrim] Allergy Rash/Hives Verified 10/23/18 13:56 Physical Exam Vitals: Vital Signs Temp Pulse Resp BP BP Pulse Ox 10/24/18 12:09 97.6 F 72 16 126/75 99 10/24/18 08:29 97.7 F 69 20 112/75 98 10/23/18 23:00 98.7 F 74 18 104/66 96 10/23/18 19:57 98.2 F 67 16 104/70 97 10/23/18 16:15 97.9 F 67 16 123/78 100 Intake and Output 10/23/18 10/24/18 10/24/18 22:59 06:59 14:59 Intake Total 2019 Balance 2019 Intake: Oral 2019 Other: # Voids 1 # Bowel Movements 1 GENERAL DESCRIPTION: Middle-aged female lying in bed, no distress. No tachypnea or accessory muscle of respiration use. HEENT: Shows Pallor , no scleral icterus. Oral mucous membrane is dry. No pharyngeal erythema or thrush NECK: Trachea central, no thyromegaly. LUNGS: Unlabored breathing. Clear to auscultation anteriorly. No wheeze or crackle. HEART: S1, S2, regular rate and rhythm. No loud murmur ABDOMEN: Soft, no tenderness , guarding or rigidity, no organomegaly EXTREMITIES: Rash on the dorsum aspect of the right foot with 2 small blister minimal swelling no foul-smelling drainage SKIN: No rash, no masses palpable. NEUROLOGICAL: The patient is awake, alert, oriented x3, mood and affect normal. Results CBC & Chem 7: 10/24/18 07:43 10/24/18 07:43 Labs: Abnormal Lab Results - Last 24 Hours (Table) 10/24/18 10/24/18 Range/Units 07:43 07:43 Lymphocytes # 0.5 L (1.0-4.8) k/uL Glucose 133 H (74-99) mg/dL Assessment and Plan Assessment: 1-patient with right foot rash that has been there for couple of weeks now and started as a blister now with a dry scaly appearance with a question of possible contact dermatitis patient did mention surroundings redness with a possible component of cellulitis not entirely excluded 2-antibiotic ALLERGIES that we will limit number of antibiotic safe to use Plan: 1-cefazolin 2 g every 8 hours 2-will apply Mycolog cream to the right foot dorsum rash area twice a day We will follow on clinical condition and cultures to further adjust medication if needed Thank you for this consultation will follow this patient with you
--- NOTE | 2018-10-25 15:55 | PN ---
PROGRESS NOTE DATE OF SERVICE: 10/25/2018. REASON FOR FOLLOWUP: Right foot cellulitis. INTERVAL HISTORY: The patient is currently afebrile. The patient has been breathing comfortably. Denies having any chest pain or any cough. No nausea, no vomiting. Her right foot pain, swelling and redness have slightly improved. PHYSICAL EXAMINATION: On examination, her blood pressure is 118/77 with a pulse of 63, temperature 98.2. She is 99% on room air. General description is a middle-aged female up in the bed in no distress. RESPIRATORY SYSTEM: Unlabored breathing. Clear to auscultation anteriorly. HEART: S1, S2. Regular rate and rhythm. ABDOMEN: Soft. No tenderness. Right foot swelling and redness have improved. DIAGNOSTIC IMPRESSION AND PLAN: Patient with right foot possible contact dermatitis and secondary cellulitis. Overall improvement with steroid cream and antibiotic. Will give a short course of oral Keflex 500 mg t.i.d. to finish a course of therapy with close outpatient followup. MMODL / IJN: [id number] /
[2018-10-25] MEDS ORDERED: BETAMETHASONE DIPROPIONATE 0.05% OINTMENT 45 GM TUBE TOPICAL SCH (21:00)
--- NOTE | 2018-11-17 08:03 | DS ---
DISCHARGE SUMMARY DATE OF ADMISSION: 10/23/2018 DATE OF DISCHARGE: 10/25/2018 DISCHARGE MEDICATION: 1. Keflex 500 q.8 hours for 7 days. 2. Omeprazole 20 mg daily. 3. Prednisone taper. 4. Diprolene ointment. 5. Albuterol inhaler. 6. Benadryl 25 mg b.i.d. 7. Spiriva 1 puff daily. 8. Zyrtec 10 mg daily. 9. Singulair 10 mg daily. CONDITION: Stable. PROGNOSIS: Guarded. Ambulate as tolerated. HOSPITAL COURSE OF EVENTS: This is a white female who came into the hospital for severe dermatitis and cellulitis of the foot. Started IV antibiotics. Seen by Infectious Disease and Dermatology. IV steroids helped her as well as IV antibiotics. Patient was stabilized and sent home to follow up as an outpatient. DIET: Regular. MMSHAINAL / CARMEN: [id number] /
== END 2018-10-25 17:10 | disposition home or self-care (01) ==
LOC: INTOOBSV 12:37 → 6PED 12:37 → UNDODISIN 10-25 17:10
PROVIDERS: ADMIT Family Medicine; ATTEND Family Medicine
DX: L03.115 Cellulitis of right lower limb (principal); L25.9 Unspecified contact dermatitis, unspecified cause; L50.8 Other urticaria; J45.909 Unspecified asthma, uncomplicated; I83.93 Asymptomatic varicose veins of bilateral lower extremities; K58.0 Irritable bowel syndrome with diarrhea; Z79.899 Other long term (current) drug therapy; Z87.440 Personal history of urinary (tract) infections; Z87.01 Personal history of pneumonia (recurrent); Z87.19 Personal history of other diseases of the digestive system; Z86.59 Personal history of other mental and behavioral disorders; Z87.81 Personal history of (healed) traumatic fracture; Z88.1 Allergy status to other antibiotic agents; Z88.5 Allergy status to narcotic agent; Z88.2 Allergy status to sulfonamides; Z88.8 Allergy status to other drugs, medicaments and biological substances; Z83.511 Family history of glaucoma; Z82.0 Family history of epilepsy and other diseases of the nervous system
CPT/HCPCS: 96361 ×3; 96365; 96366 ×3; 96375; 96376 ×3; 94640 ×2; 80053 ×2; 85652; 85025 ×2; 87324; G0378 ×3; G0379; J2920 ×3; J0690 ×3

== ENCOUNTER 2021-01-02 14:12 | Emergency (ER) | payer OTHER ==
[2021-01-02 14:28] VITALS: RESP 18
--- NOTE | 2021-01-02 17:43 | CT ---
EXAMINATION TYPE: CT brain wo con, CT facial bones wo con DATE OF EXAM: 01/02/2021 COMPARISON: None HISTORY: Head trauma. Left orbital and upper lip injury. TECHNIQUE: CT scan of the head and maxillofacial structures performed without contrast CT DLP: 1390.4 mGycm Automated exposure control for dose reduction was used. FINDINGS: CT head: Suboptimal evaluation due to streak. No acute intracranial hemorrhage midline shift or mass effect. Goss-white matter differentiation is p reserved. Mild prominence of the CSF spaces and ventricles consistent with brain volume loss. No air-fluid levels in the paranasal sinuses or mastoid air cells. Atherosclerotic calcification seen in the intracranial internal carotid arteries. No calvarial fracture. CT FACIAL BONES: There is mild soft tissue swelling over the left frontal bone and extending inferiorly to involve the superior and medial aspect of the left orbit. Retro-orbital fat is maintained. The extraocular muscl es are symmetric in appearance. No facial bone fracture or dislocation appreciated. Temporomandibular joints demonstrate mild arthrit ic changes without dislocation. Soft tissue flap and swelling over the superior lip more centrally and on the left side. IMPRESSION: 1. NO ACUTE INTRACRANIAL HEMORRHAGE, MIDLINE SHIFT OR MASS EFFECT. 2. MILD BRAIN VOLUME ATROPHY. 3. NO ACUTE FRACTURE OR DISLOCATION SEEN. 4. MILD SOFT TISSUE SWELLING OVER THE LEFT FRONTAL BONE AND SUPERIOR MEDIAL ASPECT OF THE LEFT ORBIT WITHOUT ACUTE INTRAORBITAL/RETRO-ORBITAL ABNORMALITY. 5. SOFT TISSUE INJURY OF THE UPPER LIP.
[2021-01-02] MEDS ORDERED: BUPIVACAINE (PF) 0.5% 30 ML VIAL SQ ONE (17:51)
[2021-01-02] MEDS ORDERED: LIDOCAINE 1% INJ 10MG/ML (20 ML MDV) SQ ONE (18:02)
--- NOTE | 2021-01-02 18:58 | ED ---
General Adult HPI - General Chief complaint: Wound/Laceration Stated complaint: FALL Time Seen by Provider: 01/02/21 16:31 Source: EMS Mode of arrival: EMS Limitations: no limitations - History of Present Illness Initial comments: This 55-year-old female presented after she fell. She is walking on the cement and apparently tripped on some uneven cement in [place]. She fell on her face. She hit her left forehead region as well. She presents with a large lip laceration. She did not lose any consciousness. She denies any nausea or vomiting. No other neurologic complaints. She has very minimal pain in her right wrist with previous surgery to that wrist. Her last tetanus was 3 years ago. She does complain of some chronic neck pain which is unchanged. She has been ambulatory since. She does present via EMS. No other complaints or modifying factors. - Related Data Home Medications Medication Instructions Recorded Confirmed Montelukast [Singulair] 10 mg PO HS 06/17/18 01/02/21 Tiotropium 18 Mcg/Puff [Spiriva] 1 puff INHALATION RT-DAILY 09/11/18 01/02/21 Cetirizine HCl [Zyrtec] 10 mg PO DAILY 01/02/21 01/02/21 Previous Rx's Medication Instructions Recorded Cephalexin [Keflex] 500 mg PO Q6HR #20 cap 01/02/21 Mupirocin 2% Oint [Bactroban 2% 1 applic TOPICAL TID #22 gm 01/02/21 Oint] Allergies Allergy/AdvReac Type Severity Reaction Status Date / Time bacitracin Allergy Rash/Hives Verified 01/02/21 18:13 [From Neosporin ([id number])] ciprofloxacin [From Cipro] Allergy Rash/Hives Verified 01/02/21 18:13 codeine Allergy Rash/Hives Verified 01/02/21 18:13 hydralazine Allergy FLUSHING / Verified 01/02/21 18:13 Tachycardia neomycin Allergy Rash/Hives Verified 01/02/21 18:13 [From Neosporin ([id number])] polymyxin B Allergy Rash/Hives Verified 01/02/21 18:13 [From Neosporin ([id number])] sulfamethoxazole Allergy Rash/Hives Verified 01/02/21 18:13 [From Bactrim] trimethoprim [From Bactrim] Allergy Rash/Hives Verified 01/02/21 18:13 Review of Systems ROS Statement: Those systems with pertinent positive or pertinent negative responses have been documented in the HPI. ROS Other: All systems not noted in ROS Statement are negative. Past Medical History Past Medical History: Asthma, Pneumonia Additional Past Medical History / Comment(s): IBS, occas diarrhea hemorrhoids, 2012 pneumonia/plerisy/possible COPD, endometriosis with sx, bilateral varicosities, occasional cervical pain/bilateral shoulder pain, "borderline" anemia, past frequent UTIs.Fractured bilateral wrists. History of Any Multi-Drug Resistant Organisms: None Reported Past Surgical History: Orthopedic Surgery, Uterine Ablation Additional Past Surgical History / Comment(s): D&Cs, Novasure uterine ablation, bilateral wrist ORIF, colonoscopy x 2, renal stent d/t frequent UTIs per pt. Past Anesthesia/Blood Transfusion Reactions: No Reported Reaction Additional Past Anesthesia/Blood Transfusion Reaction / Comment(s): never had blood transfusion Past Psychological History: No Psychological Hx Reported Smoking Status: Never smoker Past Alcohol Use History: Occasional Past Drug Use History: None Reported - Past Family History Father Family Medical History: Eye Disorder Additional Family Medical History / Comment(s): Glaucoma, knee issues Mother Family Medical History: Seizure Disorder Additional Family Medical History / Comment(s): Pt believes mother has alzhiemer's dx. General Exam - General Exam Comments Initial Comments: GENERAL: The patient is well nourished and well hydrated. VITAL SIGNS: Heart rate, blood pressure, respiratory rate reviewed as recorded in nurse's notes. EYES: Pupils are round and reactive. Extraocular movements are intact. No conjunctival / lid redness or swelling. ENT: Slight tenderness, swelling, and ecchymosis in the left periorbital region superior to the left eye. Airway is patent. Throat is clear. There is a large 4 cm left upper lip laceration which is flap-like in nature. There also is to intraoral lacerations to the upper lip one measuring 1.5 cm and the other one measuring 2 cm. Dentition is intact. There is no tenderness to the teeth. Posterior pharynx is clear. There is minimal nasal tenderness noted. No epistaxis identified. NECK: Nontender. No swelling or evidence of injury. No subcutaneous emphysema. Trachea is midline. No thyroid mass. HEART: Regular rate and rhythm. Good peripheral pulses. LUNGS/CHEST: Breath sounds clear and equal bilaterally. No rales, rhonchi, or wheezes. No ecchymosis, subcutaneous emphysema, or tenderness. ABDOMEN: Abdomen soft without tenderness. No palpable masses or organomegaly. No peritoneal signs. No abdominal wall swelling or ecchymosis. EXTREMITIES: There is only very slight tenderness noted to the right wrist more so anterior aspect. There is excellent range of motion no swelling. Postsurgical scar noted.. Normal muscle tone and function. No thoracolumbar tenderness. NEUROLOGIC: Sensation is grossly intact. Cranial nerve exam reveals face is symmetrical, tongue is midline, speech is clear. SKIN: No abrasions or ecchymosis is noted. No induration or masses noted. PSYCHIATRIC: Alert and oriented. Appropriate behavior and judgment. Limitations: no limitations Course Vital Signs 01/02/21 14:16 Temperature 98 F Pulse Rate 80 Respiratory 18 Rate Blood Pressure 144/82 O2 Sat by Pulse 98 Oximetry Medical Decision Making - Medical Decision Making The patient was seen and examined. A computed tomography scan of the brain and facial bones was done. This does show some soft tissue swelling but no evidence of intracranial abnormalities. No fractures identified. The wound was thoroughly cleansed. It was anesthetized with approximately 6 mL of lidocaine with bupivacaine. Excellent anesthesia was obtained. The 4 cm outer upper lip laceration was closed with 14 6-0 nylon sutures. No complications noted. The 1.5 cm inner lip laceration was closed with 4 sutures. The 2 cm deeper in her laceration was closed with 4 5-0 Vicryl sutures as well as. The patient tolerated this well. Anabiotic ointment and dressing are ordered. Return parameters are discussed. Close follow-up recommended. It is felt as though she should have her sutures out approximate 7 days. Disposition Clinical Impression: Complex laceration of circumoral region of face, Intraoral laceration, Fall, Head injury Disposition: HOME SELF-CARE Condition: Good Instructions (If sedation given, give patient instructions): Head Injury (ED), Facial Laceration (ED), Fall Prevention (ED) Additional Instructions: We recommend having her older sutures removed in 7 days. Please use ibuprofen or Tylenol if needed for pain. Prescriptions: Mupirocin 2% Oint [Bactroban 2% Oint] 1 applic TOPICAL TID #22 gm Cephalexin [Keflex] 500 mg PO Q6HR #20 cap Is patient prescribed a controlled substance at d/c from ED?: No Referrals: Luis Salazar MD [Primary Care Provider] - 01/08/21 Time of Disposition: 19:11
[2021-01-02] MEDS ORDERED: MUPIROCIN 2% OINT 22 GM TUBE TOPICAL STA (19:13)
[2021-01-02 19:56] VITALS: BP 137/97; PULSE 77; TEMP 98.1
== END 2021-01-02 19:56 | disposition home or self-care (01) ==
LOC: EC 14:12
DX: S01.511A Laceration without foreign body of lip, initial encounter (principal); S01.512A Laceration without foreign body of oral cavity, initial encounter; J45.909 Unspecified asthma, uncomplicated; Z88.1 Allergy status to other antibiotic agents; Z88.5 Allergy status to narcotic agent; Z88.2 Allergy status to sulfonamides; Z87.440 Personal history of urinary (tract) infections; Z87.19 Personal history of other diseases of the digestive system; W01.10XA Fall on same level from slipping, tripping and stumbling with subsequent striking against unspecified object, initial encounter
CPT/HCPCS: 99284; 12014; 70486; 70450; J2001

== ENCOUNTER → 2021-01-29 | Outpatient (CLI) | payer OTHER ==
--- NOTE | 2021-01-29 10:28 | XR ---
EXAMINATION TYPE: XR cervical spine comp DATE OF EXAM: 01/29/2021 CLINICAL HISTORY: pain COMPARISON: NONE TECHNIQUE: Frontal, lateral, oblique, swimmers, and open mouth view of the cervical spine are obtaine d. FINDINGS: The cervical spine is visualized in its entirety from C1 thru the top of T1 level. It is s atisfactory in alignment without evidence of acute fracture or dislocation. The pre-vertebral soft t issue appears within normal limits. Mild degenerative change at C5-6 and C6 zones mild ventral spondy losis. The C1-C2 articulation is unremarkable on the open mouth view. The oblique images are within normal limits. IMPRESSION: No acute fracture or dislocation is seen in the cervical spine.ICD 10 NO FRACTURE, INITI AL EVALUATION
== END | disposition home or self-care (01) ==
LOC: RADXRMAIN 09:54
PROVIDERS: ATTEND Family Medicine
DX: M79.18 Myalgia, other site (principal)
CPT/HCPCS: 72050

== ENCOUNTER 2022-06-28 13:39 | Emergency (ER) | payer OTHER ==
[2022-06-28 13:47] VITALS: RESP 18; TEMP 98
--- NOTE | 2022-06-28 15:50 | XR ---
EXAMINATION TYPE: XR knee complete LT DATE OF EXAM: 06/28/2022 CLINICAL HISTORY: Pain. TECHNIQUE: Three views of the left knee are obtained. COMPARISON: None. FINDINGS: There is no acute fracture/dislocation evident in left knee. Mild to moderate tricompartme nt joint space loss without significant spurring. Increased density suprapatellar bursa suspicious fo r large joint effusion. Correlate clinically. IMPRESSION: As above.
--- NOTE | 2022-06-28 15:54 | ED ---
General Adult HPI - General Chief complaint: Extremity Injury, Lower Stated complaint: Knee Pain Time Seen by Provider: 06/28/22 15:14 Source: patient, RN notes reviewed Mode of arrival: ambulatory - History of Present Illness Initial comments: 56-year-old female with no significant past medical history presents the emergency department with a chief complaint of left knee pain. She reports that she has had the left knee pain on and off for 1 month. She reports that she noticed it to be mildly swollen. She reports no known trauma or injury. She does report that she was at her son's house where there are more stairs and she is used to and feels like this aggravated her symptoms. She has been taking Tylenol with mild relief. She denies any numbness or tingling weakness in the extremity. Denies any shortness of breath chest pain, cough. She denies any recent travel, tobacco product use, OCP use. - Related Data Home Medications Medication Instructions Recorded Confirmed Montelukast [Singulair] 10 mg PO HS 06/17/18 01/02/21 Tiotropium 18 Mcg/Puff [Spiriva] 1 puff INHALATION RT-DAILY 09/11/18 01/02/21 Cetirizine HCl [Zyrtec] 10 mg PO DAILY 01/02/21 01/02/21 Previous Rx's Medication Instructions Recorded Cephalexin [Keflex] 500 mg PO Q6HR #20 cap 01/02/21 Mupirocin 2% Oint [Bactroban 2% 1 applic TOPICAL TID #22 gm 01/02/21 Oint] Allergies Allergy/AdvReac Type Severity Reaction Status Date / Time bacitracin Allergy Rash/Hives Verified 06/28/22 13:47 [From Neosporin ([id number])] ciprofloxacin [From Cipro] Allergy Rash/Hives Verified 06/28/22 13:47 codeine Allergy Rash/Hives Verified 06/28/22 13:47 hydralazine Allergy FLUSHING / Verified 06/28/22 13:47 Tachycardia neomycin Allergy Rash/Hives Verified 06/28/22 13:47 [From Neosporin ([id number])] polymyxin B Allergy Rash/Hives Verified 06/28/22 13:47 [From Neosporin ([id number])] sulfamethoxazole Allergy Rash/Hives Verified 06/28/22 13:47 [From Bactrim] trimethoprim [From Bactrim] Allergy Rash/Hives Verified 06/28/22 13:47 Review of Systems ROS Statement: Those systems with pertinent positive or pertinent negative responses have been documented in the HPI. ROS Other: All systems not noted in ROS Statement are negative. Past Medical History Past Medical History: Asthma, Pneumonia Additional Past Medical History / Comment(s): IBS, occas diarrhea hemorrhoids, 2012 pneumonia/plerisy/possible COPD, endometriosis with sx, bilateral varicosities, occasional cervical pain/bilateral shoulder pain, "borderline" anemia, past frequent UTIs.Fractured bilateral wrists. History of Any Multi-Drug Resistant Organisms: None Reported Past Surgical History: Orthopedic Surgery, Uterine Ablation Additional Past Surgical History / Comment(s): D&Cs, Novasure uterine ablation, bilateral wrist ORIF, colonoscopy x 2, renal stent d/t frequent UTIs per pt. Past Anesthesia/Blood Transfusion Reactions: No Reported Reaction Additional Past Anesthesia/Blood Transfusion Reaction / Comment(s): never had blood transfusion Past Psychological History: No Psychological Hx Reported Smoking Status: Never smoker Past Alcohol Use History: Occasional Past Drug Use History: None Reported - Past Family History Father Family Medical History: Eye Disorder Additional Family Medical History / Comment(s): Glaucoma, knee issues Mother Family Medical History: Seizure Disorder Additional Family Medical History / Comment(s): Pt believes mother has alzhiemer's dx. General Exam - General Exam Comments Initial Comments: General: Alert, in no acute distress Head: atraumatic normocephalic. Eyes PERRL, EOMI intact, mucous membranes moist Respiratory: Lungs clear to auscultation bilaterally Cardiovascular: Rate regular rate and rhythm Abdominal: Soft without guarding or rebound Extremities: Normal inspection with full range of motion and normal capillary refill, left knee without market edema or erythema for range of motion secondary to pain 2+ DT/PT pulses bilaterally distal NVI remains intact Neuroogic: alert and oriented 3, CN II-XII intact, able to ambulate with steady gait Skin: warm dry and intact with normal color Course Vital Signs 06/28/22 06/28/22 13:42 15:59 Temperature 98.0 F Pulse Rate 91 63 Respiratory 18 18 Rate Blood Pressure 170/83 138/83 O2 Sat by Pulse 98 97 Oximetry Medical Decision Making - Medical Decision Making Was pt. sent in by a medical professional or institution (SHAKILA Lee, AFFIRMATIVE ACTION SPECIALIST, urgent care, hospital, or snf...) When possible be specific @ -[No] Did you speak to anyone other than the patient for history (EMS, parent, family, police, friend...)? What history was obtained from this source @ -[No] Did you review nursing and triage notes (agree or disagree)? Why? @ -[I reviewed and agree with nursing and triage notes] Were old charts reviewed (outside hosp., previous admission, EMS record, old EKG, old radiological studies, urgent care reports/EKG's, snf records)? Report findings @ -[No old charts were reviewed] Differential Diagnosis (chest pain, altered mental status, abdominal pain women, abdominal pain men, vaginal bleeding, weakness, fever, dyspnea, syncope, headache, dizziness, GI bleed, back pain, seizure, CVA, palpatations, mental health, musculoskeletal)? @ -[not applicable] EKG interpreted by me (3pts min.). @ -[As above] X-rays interpreted by me (1pt min.). @ Left knee x-ray negative for any evidence of fracture or dislocation however there is mild effusion behind the patella CT interpreted by me (1pt min.). @ -[None done] U/S interpreted by me (1pt. min.). @ -[None done] What testing was considered but not performed or refused? (CT, X-rays, U/S, labs)? Why? @ -[None] What meds were considered but not given or refused? Why? @ -[None] Did you discuss the management of the patient with other professionals (professionals i.e. SHAKILA Lee, AFFIRMATIVE ACTION SPECIALIST, lab, RT, psych nurse, nephrology social worker, tax manager public, teacher, parachute/combatant diver officer, egg caser)? Give summary @ -[No] Was smoking cessation discussed for >3mins.? @ -[No] Was critical care preformed (if so, how long)? @ -[No] Were there social determinants of health that impacted care today? How? (Homelessness, low income, unemployed, alcoholism, drug addiction, transportation, low edu. Level, literacy, decrease access to med. care, intermediate, rehab)? @ -[No] Was there de-escalation of care discussed even if they declined (Discuss DNR or withdrawal of care, Hospice)? DNR status @ -[No] What co-morbidities impacted this encounter? (DM, HTN, Smoking, COPD, CAD, Canc er, CVA, ARF, Chemo, Hep., AIDS, mental health diagnosis, sleep apnea, morbid obesity)? @ -[None] Was patient admitted / discharged? Hospital course, mention meds given and route, prescriptions, significant lab abnormalities, going to OR and other pertinent info. @ -Discharged. This is a 56-year-old female who presents the emerge ncy department with left knee pain. Patient had a thorough history and physical exam performed. Physical exam is essentially unremarkable left knee without market swelling or erythema. Range of motion is limited secondary to pain, pulses 2+ bilaterally with distal NBI intact. Patient had imaging performed which was essentially unremarkable. I discussed the results in detail with the patient verbalized understanding and all questions were addressed. Return precautions were discussed at length. She was encouraged to follow up with orthopedists within 1-2 days. Case discussed with Dr. Richter [facility] who agrees with plan of care. Undiagnosed new problem with uncertain prognosis? @ -[No] Drug Therapy requiring intensive monitoring for toxicity (Heparin, Nitro, Insulin, Cardizem)? @ -[No] Were any procedures done? @ -[No] Diagnosis/symptom? @ -left knee pain Acute, or Chronic, or Acute on Chronic? @ -acute Uncomplicated (without systemic symptoms) or Complicated (systemic symptoms)? @ -uncomplicated Side effects of treatment? @ -[No] Exacerbation, Progression, or Severe Exacerbation? @ -[No] Poses a threat to life or bodily function? How? (Chest pain, [place], [place], pneumonia, PE, COPD, DKA, ARF, appy, cholecystitis, CVA, Diverticulitis, Homicidal, Suicidal, threat to staff... and all critical care pts) @ -low likelihood Disposition Clinical Impression: Left knee pain Disposition: HOME SELF-CARE Condition: Stable Instructions (If sedation given, give patient instructions): Knee Pain (ED) Additional Instructions: Please follow-up with orthopedics sometime this week Return to the nearest emergency department symptoms worsen or persist Is patient prescribed a controlled substance at d/c from ED?: No Referrals: Luis Salazar MD [Primary Care Provider] - 1-2 days Crissy Hill DO [Doctor of Osteopathic Medicine] - 1-2 days
[2022-06-28 16:00] VITALS: BP 138/83; PULSE 63
== END 2022-06-28 16:45 | disposition home or self-care (01) ==
LOC: EC 13:39
DX: M25.562 Pain in left knee (principal); J45.909 Unspecified asthma, uncomplicated; Z88.2 Allergy status to sulfonamides; Z88.5 Allergy status to narcotic agent; Z88.8 Allergy status to other drugs, medicaments and biological substances; Z88.1 Allergy status to other antibiotic agents
CPT/HCPCS: 99283